=== PATIENT | male | born 1955 | race Asian ===

== ENCOUNTER 2019-06-14 20:53 | Emergency (ER) | payer OTHER ==
[~2019-06-14] VITALS: Ht 170.2 cm; Wt 102.7 kg
[2019-06-14] MEDS ORDERED: PIOG15TA6 PO (21:32)
[2019-06-14] MEDS ORDERED: TAMS-13 PO (21:32)
[2019-06-14] MEDS ORDERED: FINA5TAB41 PO (21:32)
[2019-06-14] MEDS ORDERED: SIMV-260 PO (21:32)
[2019-06-14] MEDS ORDERED: GABA-531 PO (21:32)
[2019-06-14] MEDS ORDERED: LISI-660 PO (21:32)
[2019-06-14] MEDS ORDERED: GLIP5TAB11 PO (21:32)
[2019-06-14] MEDS ORDERED: METF-445 PO (21:32)
[2019-06-14] MEDS ORDERED: DILT-39 PO (21:32)
[2019-06-14] MEDS ORDERED: LIDOCAINE 1% 10 ML VIAL INJ ONE (22:00)
[2019-06-14] MEDS ORDERED: POVIDONE-IODINE 10% 15 ML SOLUTION UD TP ONE (22:15)
[2019-06-14 22:30] VITALS: BP 128/75
[2019-06-14] MEDS ORDERED: IBUPROFEN 800 MG TABLET PO ONE (22:30)
[2019-06-14] MEDS ORDERED: SULFAMETHOX/TRIMETH DS 800-160 MG/TABLET PO ONE (23:00)
[2019-06-14] MEDS ORDERED: CEPHALEXIN MONOHYDRATE 500 MG CAPSULE PO ONE (23:00)
== END 2019-06-14 22:56 | disposition home or self-care (01) ==
LOC: EMS 20:57
DX: L03.317 Cellulitis of buttock (principal); L02.31 Cutaneous abscess of buttock; E11.9 Type 2 diabetes mellitus without complications; E78.00 Pure hypercholesterolemia, unspecified; I10 Essential (primary) hypertension; Z79.899 Other long term (current) drug therapy
CPT/HCPCS: 10061; 99284; J3490; 10060; 90471

== ENCOUNTER 2019-08-30 10:43 | Inpatient (IN) | payer OTHER ==
[~2019-08-30] VITALS: Ht 170.2 cm; Wt 101.0 kg
[~2019-08-30 10:43] MED LIST: DILT-39 PO; FINA-27 PO; GABA-531 PO; GLIP5TAB11 PO; LISI-660 PO; METF-445 PO; PIOG15TA6 PO; SIMV-260 PO; TAMS-13 PO
[2019-08-30 10:59] LABS: GLUCOSE,POINT OF CARE 248 MG/DL (70-110)
[2019-08-30] MEDS ORDERED: VANCOMYCIN HCL 1 GM/D5% WATER 200 ML IV ONE (12:15)
[2019-08-30 13:42] LABS: BASOPHILS % (AUTO) 0.4 % (0.0-2.0); HEMOGLOBIN 13.8 g/dL (13.5-17.5); LYMPHOCYTES # (AUTO) 1.7 K/uL (1.0-4.8); LYMPHOCYTES % (AUTO) 9.5 % (22.0-44.0); MEAN CORPUSCULAR HEMOGLOBIN 26.3 pg (26.0-34.0); MEAN CORPUSCULAR HGB CONC 32.8 G/dL (31.0-37.0); MEAN CORPUSCULAR VOLUME 80 fL (80-100); MONOCYTES # (AUTO) 1.5 K/uL (0.1-1.0); MONOCYTES % (AUTO) 8.1 % (2.0-9.0); NEUTROPHILS # (AUTO) 12.1 K/uL (1.8-7.7); NEUTROPHILS % (AUTO) 65.7 % (40.0-70.0); PLATELET COUNT (AUTO) 287 K/uL (150-450); RED BLOOD CELL COUNT(AUTO) 5.23 MIL/uL (4.50-5.90); RED CELL DISTRIBUTION WIDTH 15.1 % (11.5-14.5)
[2019-08-30 13:44] LABS: EOSINOPHILS % (AUTO) 16.3 % (1.0-6.0)
[2019-08-30 13:49] LABS: ANION GAP 11 mmol/L (8-16); CALCIUM, TOTAL 9.3 mg/dL (8.8-10.5); CARBON DIOXIDE 28 mmol/L (22-29); CHLORIDE 102 mmol/L (98-107); CREATININE 1.13 mg/dL (0.60-1.30); GLOMERULAR FILTR. RATE CALC > 60 mL/min (>60); GLUCOSE,RANDOM 142 mg/dL (70-110); POTASSIUM 3.8 mmol/L (3.5-5.1); SODIUM SERUM 141 mmol/L (136-145); UREA NITROGEN, BLOOD 12 mg/dL (7-18)
[2019-08-30 13:55] LABS: ALANINE AMINOTRANSFERASE 19 U/L (12-78); ALBUMIN 3.8 g/dL (3.4-5.0); ALKALINE PHOSPHATASE 65 U/L (46-116); ASPARTATE AMINOTRANSFERASE 16 U/L (15-37); BILIRUBIN,TOTAL 0.3 mg/dL (0.1-1.0); TOTAL PROTEIN, SERUM 8.2 g/dL (6.4-8.2)
[2019-08-30 13:57] LABS: LACTIC ACID 1.1 mmol/L (0.4-2.0)
[2019-08-30 14:07] LABS: B-TYPE NATRIURETIC PEPTIDE 69 pg/mL (0-100)
[2019-08-30] MEDS ORDERED: IOVERSOL 350 MG/ML 100 ML VIAL ONE (14:10)
[2019-08-30] MEDS ORDERED: SODIUM CHLORIDE 0.9% 100 ML ONE (14:10)
[2019-08-30] MEDS ORDERED: HYDROCODONE/ACETAMINOPHEN 5-325 MG TABLET PO ONE ×2 (16:00→20:00)
[2019-08-30] MEDS ORDERED: 0.9% SODIUM CHLORIDE 10 ML SYRINGE IVP PRN ×2 (16:30→23:45)
[2019-08-30] MEDS ORDERED: ACETAMINOPHEN 325 MG TABLET PO PRN (16:30)
[2019-08-30] MEDS ORDERED: PIPERACILLIN/TAZO 3.375 GM/D5W 50 ML IV ONE (16:30)
[2019-08-30 21:45] VITALS: BP 114/78
[2019-08-30] MEDS ORDERED: ONDANSETRON HCL 4 MG/2 ML VIAL IVP PRN (23:45)
[2019-08-31] MEDS: DOCUSATE SODIUM 100 MG CAPSULE PO SCH ×3 (00:25→20:43)
[2019-08-31] MEDS: OxyCODONE HCL/ACETAMINOPHEN 5-325 MG TABLET PO PRN ×4 (00:26→23:59)
[2019-08-31] MEDS: CeFAZolin 1 GM/DEXTROSE 50 ML IV SCH ×4 (00:26→23:29)
[2019-08-31] MEDS ORDERED: SODIUM CHLORIDE 0.9% 1,000 ML ONE (00:48)
[2019-08-31 03:30] VITALS: BP 131/72
[2019-08-31 08:14] LABS: BASOPHILS % (AUTO) 0.4 % (0.0-2.0); HEMATOCRIT 39.8 % (41-53); HEMOGLOBIN 13.2 g/dL (13.5-17.5); LYMPHOCYTES # (AUTO) 1.7 K/uL (1.0-4.8); LYMPHOCYTES % (AUTO) 9.3 % (22.0-44.0); MEAN CORPUSCULAR HEMOGLOBIN 26.5 pg (26.0-34.0); MEAN CORPUSCULAR HGB CONC 33.2 G/dL (31.0-37.0); MEAN CORPUSCULAR VOLUME 80 fL (80-100); MONOCYTES # (AUTO) 1.8 K/uL (0.1-1.0); MONOCYTES % (AUTO) 9.5 % (2.0-9.0); NEUTROPHILS # (AUTO) 12.7 K/uL (1.8-7.7); NEUTROPHILS % (AUTO) 67.8 % (40.0-70.0); PLATELET COUNT (AUTO) 298 K/uL (150-450); RED BLOOD CELL COUNT(AUTO) 4.99 MIL/uL (4.50-5.90); RED CELL DISTRIBUTION WIDTH 14.8 % (11.5-14.5)
[2019-08-31 08:16] VITALS: BP 121/68
[2019-08-31] MEDS: FAMOTIDINE 10 MG/ML 2 ML VIAL IVP SCH (08:19)
[2019-08-31] MEDS: DILTIAZEM HCL CD 120 MG ER CAPSULE PO SCH (08:20)
[2019-08-31] MEDS: TAMSULOSIN HCL 0.4 MG CAPSULE PO SCH (08:20)
[2019-08-31] MEDS: FINASTERIDE 5 MG TABLET PO SCH (08:20)
[2019-08-31] MEDS: SIMVASTATIN 20 MG TABLET PO SCH (08:21)
[2019-08-31 08:40] LABS: ALANINE AMINOTRANSFERASE 17 U/L (12-78); ALBUMIN 3.5 g/dL (3.4-5.0); ALKALINE PHOSPHATASE 78 U/L (46-116); ANION GAP 9 mmol/L (8-16); ASPARTATE AMINOTRANSFERASE 10 U/L (15-37); BILIRUBIN,TOTAL 0.4 mg/dL (0.1-1.0); CALCIUM, TOTAL 8.9 mg/dL (8.8-10.5); CARBON DIOXIDE 29 mmol/L (22-29); CHLORIDE 99 mmol/L (98-107); GLOMERULAR FILTR. RATE CALC > 60 mL/min (>60); GLUCOSE,RANDOM 150 mg/dL (70-110); POTASSIUM 3.6 mmol/L (3.5-5.1); SODIUM SERUM 137 mmol/L (136-145); UREA NITROGEN, BLOOD 12 mg/dL (7-18)
[2019-08-31] MEDS: LISINOPRIL 5 MG TABLET PO SCH (09:02)
[2019-08-31 12:33] VITALS: BP 143/71
[2019-08-31] MEDS: HYDROGEN PEROXIDE 118 ML SOLUTION TP SCH ×2 (14:50→22:27)
[2019-08-31 15:55] VITALS: BP 150/94
[2019-08-31 19:15] VITALS: BP 111/62
[2019-08-31 23:50] VITALS: BP 116/52
[2019-09-01 04:45] VITALS: BP 133/58
[2019-09-01 07:42] VITALS: BP 134/77
[2019-09-01] MEDS: CeFAZolin 1 GM/DEXTROSE 50 ML IV SCH ×3 (07:51→23:19)
[2019-09-01] MEDS: LISINOPRIL 5 MG TABLET PO SCH (08:19)
[2019-09-01] MEDS: DOCUSATE SODIUM 100 MG CAPSULE PO SCH ×3 (08:19→21:00)
[2019-09-01] MEDS: SIMVASTATIN 20 MG TABLET PO SCH (08:19)
[2019-09-01] MEDS: TAMSULOSIN HCL 0.4 MG CAPSULE PO SCH (08:19)
[2019-09-01] MEDS: DILTIAZEM HCL CD 120 MG ER CAPSULE PO SCH (08:19)
[2019-09-01] MEDS: FINASTERIDE 5 MG TABLET PO SCH (08:19)
[2019-09-01] MEDS: HYDROGEN PEROXIDE 118 ML SOLUTION TP SCH ×2 (08:20→20:42)
[2019-09-01] MEDS: FAMOTIDINE 10 MG/ML 2 ML VIAL IVP SCH (08:20)
[2019-09-01] MEDS: VANCOMYCIN HCL 1 GM/D5% WATER 200 ML IV SCH ×2 (11:25→20:42)
[2019-09-01 11:29] VITALS: BP 107/52
[2019-09-01] MEDS: OxyCODONE HCL/ACETAMINOPHEN 5-325 MG TABLET PO PRN ×2 (12:21→18:50)
[2019-09-01 15:22] VITALS: BP 120/79
[2019-09-01] MEDS ORDERED: DEXTROSE 50%-WATER 25 GM/50 ML SYRINGE IVP PRN (17:15)
[2019-09-01 17:19] LABS: BASOPHILS % (AUTO) 0.6 % (0.0-2.0); EOSINOPHILS % (AUTO) 14.4 % (1.0-6.0); HEMATOCRIT 37.3 % (41-53); HEMOGLOBIN 11.9 g/dL (13.5-17.5); LYMPHOCYTES # (AUTO) 1.7 K/uL (1.0-4.8); LYMPHOCYTES % (AUTO) 11.2 % (22.0-44.0); MEAN CORPUSCULAR HEMOGLOBIN 25.4 pg (26.0-34.0); MEAN CORPUSCULAR HGB CONC 31.8 G/dL (31.0-37.0); MEAN CORPUSCULAR VOLUME 80 fL (80-100); MONOCYTES # (AUTO) 1.4 K/uL (0.1-1.0); MONOCYTES % (AUTO) 9.3 % (2.0-9.0); NEUTROPHILS # (AUTO) 9.9 K/uL (1.8-7.7); NEUTROPHILS % (AUTO) 64.5 % (40.0-70.0); PLATELET COUNT (AUTO) 295 K/uL (150-450); RED BLOOD CELL COUNT(AUTO) 4.67 MIL/uL (4.50-5.90); RED CELL DISTRIBUTION WIDTH 15.2 % (11.5-14.5)
[2019-09-01] MEDS ORDERED: GLIP10 PO (17:25)
[2019-09-01 17:36] LABS: GLUCOMETER DEV NAME(LOC) 6N.2; GLUCOSE,POINT OF CARE 181 MG/DL (70-110)
[2019-09-01] MEDS: INSULIN LISPRO 100 UNITS/ML SQ PRN ×2 (17:52→23:12)
[2019-09-01 19:45] VITALS: BP 119/66
[2019-09-01 20:54] LABS: GLUCOMETER DEV NAME(LOC) 6N.1; GLUCOSE,POINT OF CARE 215 MG/DL (70-110)
[2019-09-01 23:18] LABS: GLUCOMETER DEV NAME(LOC) 6N.2; GLUCOSE,POINT OF CARE 188 MG/DL (70-110)
[2019-09-01 23:35] VITALS: BP 113/57
[2019-09-02 04:00] VITALS: BP 123/78
[2019-09-02 06:22] LABS: GLUCOMETER DEV NAME(LOC) 6N.2; GLUCOSE,POINT OF CARE 156 MG/DL (70-110)
[2019-09-02] MEDS: INSULIN LISPRO 100 UNITS/ML SQ PRN ×4 (06:44→22:04)
[2019-09-02 07:07] LABS: BASOPHILS % (AUTO) 0.6 % (0.0-2.0); HEMATOCRIT 36.5 % (41-53); HEMOGLOBIN 12.1 g/dL (13.5-17.5); LYMPHOCYTES # (AUTO) 1.5 K/uL (1.0-4.8); LYMPHOCYTES % (AUTO) 12.9 % (22.0-44.0); MEAN CORPUSCULAR HEMOGLOBIN 26.4 pg (26.0-34.0); MEAN CORPUSCULAR HGB CONC 33.2 G/dL (31.0-37.0); MEAN CORPUSCULAR VOLUME 80 fL (80-100); MONOCYTES # (AUTO) 1.1 K/uL (0.1-1.0); MONOCYTES % (AUTO) 9.4 % (2.0-9.0); NEUTROPHILS # (AUTO) 6.6 K/uL (1.8-7.7); NEUTROPHILS % (AUTO) 55.7 % (40.0-70.0); PLATELET COUNT (AUTO) 287 K/uL (150-450)
[2019-09-02 07:31] VITALS: BP 119/72
[2019-09-02 07:33] LABS: ANION GAP 10 mmol/L (8-16); CALCIUM, TOTAL 8.2 mg/dL (8.8-10.5); CARBON DIOXIDE 27 mmol/L (22-29); CHLORIDE 102 mmol/L (98-107); CREATININE 1.11 mg/dL (0.60-1.30); GLOMERULAR FILTR. RATE CALC > 60 mL/min (>60); GLUCOSE,RANDOM 156 mg/dL (70-110); POTASSIUM 3.4 mmol/L (3.5-5.1); SODIUM SERUM 139 mmol/L (136-145); UREA NITROGEN, BLOOD 17 mg/dL (7-18)
[2019-09-02] MEDS: TAMSULOSIN HCL 0.4 MG CAPSULE PO SCH (08:20)
[2019-09-02] MEDS: CeFAZolin 1 GM/DEXTROSE 50 ML IV SCH ×2 (08:20→16:30)
[2019-09-02] MEDS: DOCUSATE SODIUM 100 MG CAPSULE PO SCH ×2 (08:21→21:50)
[2019-09-02] MEDS: DILTIAZEM HCL CD 120 MG ER CAPSULE PO SCH (08:21)
[2019-09-02] MEDS: FINASTERIDE 5 MG TABLET PO SCH (08:21)
[2019-09-02] MEDS: SIMVASTATIN 20 MG TABLET PO SCH (08:21)
[2019-09-02] MEDS: LISINOPRIL 5 MG TABLET PO SCH (08:21)
[2019-09-02] MEDS: FAMOTIDINE 10 MG/ML 2 ML VIAL IVP SCH (08:22)
[2019-09-02] MEDS: HYDROGEN PEROXIDE 118 ML SOLUTION TP SCH ×2 (08:32→21:56)
[2019-09-02] MEDS ORDERED: MAGNESIUM HYDROXIDE SUSPENSION 30 ML UDCUP PO PRN (08:45)
[2019-09-02 08:56] LABS: EOSINOPHILS % (AUTO) 21.4 % (1.0-6.0)
[2019-09-02] MEDS ORDERED: VANCOMYCIN HCL 1.25 GM in DEXTROSE 5%-WATER 250 ML IV ONE (09:00)
[2019-09-02] MEDS ORDERED: VANCOMYCIN HCL 1 GM/D5% WATER 200 ML IV ONE (09:30)
[2019-09-02 11:18] VITALS: BP 115/73
[2019-09-02 15:15] LABS: GLUCOMETER DEV NAME(LOC) 6N.2; GLUCOSE,POINT OF CARE 221 MG/DL (70-110)
[2019-09-02] MEDS ORDERED: POTASSIUM CHL 10 MEQ/WATER 50 ML IV PRN (15:30)
[2019-09-02] MEDS: POTASSIUM CHLORIDE 20 MEQ ER TABLET PO PRN (15:58)
[2019-09-02] MEDS: OxyCODONE HCL/ACETAMINOPHEN 5-325 MG TABLET PO PRN ×2 (16:18→21:50)
[2019-09-02 20:00] VITALS: BP 121/61
[2019-09-02] MEDS ORDERED: VANCOMYCIN HCL 1.25 GM in DEXTROSE 5%-WATER 250 ML IV SCH (20:00)
[2019-09-02] MEDS: VANCOMYCIN HCL 1 GM/D5% WATER 200 ML IV SCH (21:55)
[2019-09-02 23:21] VITALS: BP 122/78
[2019-09-03] MEDS: CeFAZolin 1 GM/DEXTROSE 50 ML IV SCH ×3 (01:02→16:24)
[2019-09-03 04:00] VITALS: BP 130/73
[2019-09-03] MEDS: VANCOMYCIN HCL 1 GM/D5% WATER 200 ML IV SCH ×3 (05:29→22:57)
[2019-09-03 06:11] LABS: BASOPHILS % (AUTO) 0.7 % (0.0-2.0); HEMATOCRIT 38.6 % (41-53); HEMOGLOBIN 12.9 g/dL (13.5-17.5); LYMPHOCYTES # (AUTO) 1.9 K/uL (1.0-4.8); LYMPHOCYTES % (AUTO) 15.1 % (22.0-44.0); MEAN CORPUSCULAR HEMOGLOBIN 26.5 pg (26.0-34.0); MEAN CORPUSCULAR HGB CONC 33.3 G/dL (31.0-37.0); MEAN CORPUSCULAR VOLUME 80 fL (80-100); MONOCYTES # (AUTO) 1.2 K/uL (0.1-1.0); MONOCYTES % (AUTO) 9.3 % (2.0-9.0); NEUTROPHILS % (AUTO) 55.8 % (40.0-70.0); PLATELET COUNT (AUTO) 320 K/uL (150-450); RED BLOOD CELL COUNT(AUTO) 4.86 MIL/uL (4.50-5.90); RED CELL DISTRIBUTION WIDTH 14.9 % (11.5-14.5)
[2019-09-03 06:18] LABS: EOSINOPHILS % (AUTO) 19.1 % (1.0-6.0)
[2019-09-03] MEDS: INSULIN LISPRO 100 UNITS/ML SQ PRN ×3 (06:28→20:30)
[2019-09-03 06:34] LABS: ANION GAP 8 mmol/L (8-16); CALCIUM, TOTAL 8.4 mg/dL (8.8-10.5); CARBON DIOXIDE 27 mmol/L (22-29); CHLORIDE 100 mmol/L (98-107); CREATININE 1.06 mg/dL (0.60-1.30); GLOMERULAR FILTR. RATE CALC > 60 mL/min (>60); GLUCOSE,RANDOM 185 mg/dL (70-110); SODIUM SERUM 135 mmol/L (136-145); UREA NITROGEN, BLOOD 15 mg/dL (7-18); VANCOMYCIN,RANDOM 15.3 mcg/mL (25.0-50.0)
[2019-09-03 07:45] VITALS: BP 127/65
[2019-09-03] MEDS: DOCUSATE SODIUM 100 MG CAPSULE PO SCH ×2 (08:41→20:29)
[2019-09-03] MEDS: FAMOTIDINE 10 MG/ML 2 ML VIAL IVP SCH (08:41)
[2019-09-03] MEDS: SIMVASTATIN 20 MG TABLET PO SCH (08:41)
[2019-09-03] MEDS: FINASTERIDE 5 MG TABLET PO SCH (08:41)
[2019-09-03] MEDS: TAMSULOSIN HCL 0.4 MG CAPSULE PO SCH (08:41)
[2019-09-03] MEDS: DILTIAZEM HCL CD 120 MG ER CAPSULE PO SCH (08:41)
[2019-09-03] MEDS: LISINOPRIL 5 MG TABLET PO SCH (08:42)
[2019-09-03] MEDS: OxyCODONE HCL/ACETAMINOPHEN 5-325 MG TABLET PO PRN ×3 (08:45→23:21)
[2019-09-03] MEDS: HYDROGEN PEROXIDE 118 ML SOLUTION TP SCH (09:00)
[2019-09-03 11:49] VITALS: BP 142/79
[2019-09-03] MEDS ORDERED: FentaNYL CITRATE-PF 100 MCG/2 ML VIAL IVP ONE (12:00)
[2019-09-03] MEDS ORDERED: LIDOCAINE/PF 2% 5 ML SYRINGE IVP ONE (12:00)
[2019-09-03] MEDS ORDERED: MIDAZOLAM HCL 2 MG/2 ML VIAL IVP ONE (12:00)
[2019-09-03] MEDS ORDERED: ROCURONIUM BROMIDE 10 MG/ML 5 ML VIAL IVP ONE (12:00)
[2019-09-03] MEDS ORDERED: PROPOFOL 1% 20 ML VIAL IVP ONE (12:00)
[2019-09-03] MEDS ORDERED: SUCCINYLCHOLINE CHLORIDE 20 MG/ML 10 ML VIAL IVP ONE (12:00)
[2019-09-03] MEDS ORDERED: RINGERS SOLUTION,LACTATED 1,000 ML IV ONE (12:00)
[2019-09-03] MEDS ORDERED: ONDANSETRON HCL 4 MG/2 ML VIAL IVP ONE (12:00)
[2019-09-03] MEDS ORDERED: SODIUM CHLORIDE 0.9% 10 ML ONE (14:19)
[2019-09-03] MEDS ORDERED: BACITRACIN 50,000 UNITS/VIAL ONE (14:19)
[2019-09-03] MEDS ORDERED: BUPIVACAINE 0.25%/EPI 1:200,000/PF 10 ML VIAL ONE (14:24)
[2019-09-03] MEDS ORDERED: FentaNYL CITRATE-PF 100 MCG/2 ML VIAL IVP PRN (15:15)
[2019-09-03] MEDS ORDERED: HYDROmorphone 2 MG/ML SYRINGE IVP PRN (15:15)
[2019-09-03] MEDS ORDERED: MEPERIDINE-PF 25 MG/ML VIAL IVP PRN (15:15)
[2019-09-03] MEDS ORDERED: SUGAMMADEX SODIUM 200 MG/2 ML VIAL IVP ONE (15:16)
[2019-09-03] MEDS ORDERED: HYDROmorphone 2 MG/ML SYRINGE ONE (15:44)
[2019-09-03 16:48] VITALS: BP 153/75
[2019-09-03 19:40] VITALS: BP 116/63
[2019-09-03] MEDS: OXYGEN THERAPY IH SCH (20:00)
[2019-09-03 23:22] VITALS: BP 129/79
[2019-09-04] MEDS: CeFAZolin 1 GM/DEXTROSE 50 ML IV SCH ×2 (00:57→08:49)
[2019-09-04 05:22] VITALS: BP 140/75
[2019-09-04] MEDS: VANCOMYCIN HCL 1 GM/D5% WATER 200 ML IV SCH (06:20)
[2019-09-04] MEDS: INSULIN LISPRO 100 UNITS/ML SQ PRN ×4 (06:21→20:22)
[2019-09-04 06:26] LABS: BASOPHILS % (AUTO) 0.8 % (0.0-2.0); HEMATOCRIT 39.3 % (41-53); HEMOGLOBIN 12.8 g/dL (13.5-17.5); LYMPHOCYTES % (AUTO) 17.9 % (22.0-44.0); MEAN CORPUSCULAR HGB CONC 32.5 G/dL (31.0-37.0); MEAN CORPUSCULAR VOLUME 80 fL (80-100); MONOCYTES # (AUTO) 1.1 K/uL (0.1-1.0); MONOCYTES % (AUTO) 9.3 % (2.0-9.0); NEUTROPHILS # (AUTO) 6.1 K/uL (1.8-7.7); NEUTROPHILS % (AUTO) 54.3 % (40.0-70.0); PLATELET COUNT (AUTO) 341 K/uL (150-450); RED BLOOD CELL COUNT(AUTO) 4.92 MIL/uL (4.50-5.90); RED CELL DISTRIBUTION WIDTH 14.9 % (11.5-14.5)
[2019-09-04 06:29] LABS: EOSINOPHILS % (AUTO) 17.7 % (1.0-6.0)
[2019-09-04 06:56] LABS: VANCOMYCIN,RANDOM 21.7 mcg/mL (25.0-50.0)
[2019-09-04 07:15] LABS: ANION GAP 8 mmol/L (8-16); CALCIUM, TOTAL 8.7 mg/dL (8.8-10.5); CARBON DIOXIDE 27 mmol/L (22-29); CHLORIDE 100 mmol/L (98-107); GLOMERULAR FILTR. RATE CALC > 60 mL/min (>60); GLUCOSE,RANDOM 174 mg/dL (70-110); POTASSIUM 4.2 mmol/L (3.5-5.1); SODIUM SERUM 135 mmol/L (136-145)
[2019-09-04 07:29] LABS: UREA NITROGEN, BLOOD 13 mg/dL (7-18)
[2019-09-04] MEDS: OXYGEN THERAPY IH SCH (08:00)
[2019-09-04 08:09] VITALS: BP 129/66
[2019-09-04] MEDS: OxyCODONE HCL/ACETAMINOPHEN 5-325 MG TABLET PO PRN ×2 (08:47→18:43)
[2019-09-04] MEDS: FAMOTIDINE 10 MG/ML 2 ML VIAL IVP SCH (08:48)
[2019-09-04] MEDS: DOCUSATE SODIUM 100 MG CAPSULE PO SCH ×2 (08:48→20:12)
[2019-09-04] MEDS: FINASTERIDE 5 MG TABLET PO SCH (08:48)
[2019-09-04] MEDS: TAMSULOSIN HCL 0.4 MG CAPSULE PO SCH (08:48)
[2019-09-04] MEDS: SIMVASTATIN 20 MG TABLET PO SCH (08:48)
[2019-09-04] MEDS: DILTIAZEM HCL CD 120 MG ER CAPSULE PO SCH (08:48)
[2019-09-04] MEDS: LISINOPRIL 5 MG TABLET PO SCH (08:48)
[2019-09-04 11:31] VITALS: BP 131/85
[2019-09-04] MEDS: VANCOMYCIN HCL 750 MG in DEXTROSE 5%-WATER 250 ML IV SCH ×2 (15:15→22:15)
[2019-09-04] MEDS ORDERED: SODIUM CHLORIDE 0.9% 1,000 ML ONE (15:19)
[2019-09-04 16:15] VITALS: BP 127/65
[2019-09-04 20:24] VITALS: BP 118/54
[2019-09-04 23:45] VITALS: BP 133/68
[2019-09-05] MEDS: INSULIN LISPRO 100 UNITS/ML SQ PRN ×4 (05:26→21:20)
[2019-09-05 05:30] VITALS: BP 128/58
[2019-09-05] MEDS: VANCOMYCIN HCL 750 MG in DEXTROSE 5%-WATER 250 ML IV SCH ×3 (06:24→23:51)
[2019-09-05 07:35] VITALS: BP 149/81
[2019-09-05] MEDS: OXYGEN THERAPY IH SCH ×2 (08:00→20:32)
[2019-09-05] MEDS: LISINOPRIL 5 MG TABLET PO SCH (09:02)
[2019-09-05] MEDS: FINASTERIDE 5 MG TABLET PO SCH (09:02)
[2019-09-05] MEDS: DOCUSATE SODIUM 100 MG CAPSULE PO SCH ×2 (09:02→20:29)
[2019-09-05] MEDS: FAMOTIDINE 10 MG/ML 2 ML VIAL IVP SCH (09:02)
[2019-09-05] MEDS: SIMVASTATIN 20 MG TABLET PO SCH (09:03)
[2019-09-05] MEDS: TAMSULOSIN HCL 0.4 MG CAPSULE PO SCH (09:03)
[2019-09-05] MEDS: DILTIAZEM HCL CD 120 MG ER CAPSULE PO SCH (09:03)
[2019-09-05 09:16] LABS: ANION GAP 11 mmol/L (8-16); CARBON DIOXIDE 26 mmol/L (22-29); CHLORIDE 99 mmol/L (98-107); CREATININE 1.09 mg/dL (0.60-1.30); GLOMERULAR FILTR. RATE CALC > 60 mL/min (>60); GLUCOSE,RANDOM 218 mg/dL (70-110); POTASSIUM 4.2 mmol/L (3.5-5.1); SODIUM SERUM 136 mmol/L (136-145); UREA NITROGEN, BLOOD 9 mg/dL (7-18)
[2019-09-05] MEDS: OxyCODONE HCL/ACETAMINOPHEN 5-325 MG TABLET PO PRN ×2 (10:54→20:31)
[2019-09-05 11:20] VITALS: BP 134/78
[2019-09-05 15:25] VITALS: BP 136/76
[2019-09-05 19:46] VITALS: BP 132/62
[2019-09-05 23:58] VITALS: BP 121/65
[2019-09-06 04:42] VITALS: BP 140/76
[2019-09-06 06:10] LABS: ANION GAP 8 mmol/L (8-16); CALCIUM, TOTAL 8.9 mg/dL (8.8-10.5); CARBON DIOXIDE 29 mmol/L (22-29); CHLORIDE 100 mmol/L (98-107); CREATININE 1.09 mg/dL (0.60-1.30); GLOMERULAR FILTR. RATE CALC > 60 mL/min (>60); GLUCOSE,RANDOM 200 mg/dL (70-110); POTASSIUM 3.8 mmol/L (3.5-5.1); SODIUM SERUM 137 mmol/L (136-145); UREA NITROGEN, BLOOD 12 mg/dL (7-18); VANCOMYCIN,RANDOM 20.6 mcg/mL (25.0-50.0)
[2019-09-06] MEDS: VANCOMYCIN HCL 750 MG in DEXTROSE 5%-WATER 250 ML IV SCH ×3 (06:24→22:22)
[2019-09-06] MEDS: INSULIN LISPRO 100 UNITS/ML SQ PRN ×4 (06:32→20:58)
[2019-09-06 07:39] VITALS: BP 128/64
[2019-09-06] MEDS: FAMOTIDINE 10 MG/ML 2 ML VIAL IVP SCH (08:34)
[2019-09-06] MEDS: DOCUSATE SODIUM 100 MG CAPSULE PO SCH ×2 (08:35→20:57)
[2019-09-06] MEDS: DILTIAZEM HCL CD 120 MG ER CAPSULE PO SCH (08:35)
[2019-09-06] MEDS: FINASTERIDE 5 MG TABLET PO SCH (08:35)
[2019-09-06] MEDS: LISINOPRIL 5 MG TABLET PO SCH (08:35)
[2019-09-06] MEDS: SIMVASTATIN 20 MG TABLET PO SCH (08:35)
[2019-09-06] MEDS: TAMSULOSIN HCL 0.4 MG CAPSULE PO SCH (08:35)
[2019-09-06 13:09] LABS: GLUCOMETER DEV NAME(LOC) 6N.1; GLUCOSE,POINT OF CARE 222 MG/DL (70-110)
[2019-09-06 13:09] LABS: GLUCOMETER DEV NAME(LOC) 6N.1; GLUCOSE,POINT OF CARE 181 MG/DL (70-110)
[2019-09-06 13:09] LABS: GLUCOMETER DEV NAME(LOC) 6N.1; GLUCOSE,POINT OF CARE 209 MG/DL (70-110)
[2019-09-06 13:09] LABS: GLUCOMETER DEV NAME(LOC) 6N.1; GLUCOSE,POINT OF CARE 220 MG/DL (70-110)
[2019-09-06 13:10] LABS: GLUCOMETER DEV NAME(LOC) 4E.2; GLUCOSE,POINT OF CARE 198 MG/DL (70-110)
[2019-09-06 13:10] LABS: GLUCOMETER DEV NAME(LOC) 4E.2; GLUCOSE,POINT OF CARE 170 MG/DL (70-110)
[2019-09-06 13:10] LABS: GLUCOMETER DEV NAME(LOC) 4E.2; GLUCOSE,POINT OF CARE 205 MG/DL (70-110)
[2019-09-06 13:10] LABS: GLUCOMETER DEV NAME(LOC) 6N.1; GLUCOSE,POINT OF CARE 177 MG/DL (70-110)
[2019-09-06 13:11] LABS: GLUCOMETER DEV NAME(LOC) 6N.1; GLUCOSE,POINT OF CARE 381 MG/DL (70-110)
[2019-09-06 13:11] LABS: GLUCOMETER DEV NAME(LOC) 6N.1; GLUCOSE,POINT OF CARE 205 MG/DL (70-110)
[2019-09-06 13:11] LABS: GLUCOMETER DEV NAME(LOC) 4E.2; GLUCOSE,POINT OF CARE 270 MG/DL (70-110)
[2019-09-06 13:11] LABS: GLUCOMETER DEV NAME(LOC) 6N.1; GLUCOSE,POINT OF CARE 273 MG/DL (70-110)
[2019-09-06 13:12] LABS: GLUCOMETER DEV NAME(LOC) 4E.2; GLUCOSE,POINT OF CARE 174 MG/DL (70-110)
[2019-09-06 13:12] LABS: GLUCOMETER DEV NAME(LOC) 4E.2; GLUCOSE,POINT OF CARE 232 MG/DL (70-110)
[2019-09-06 13:12] LABS: GLUCOMETER DEV NAME(LOC) 4E.2; GLUCOSE,POINT OF CARE 213 MG/DL (70-110)
[2019-09-06 13:12] LABS: GLUCOMETER DEV NAME(LOC) 4E.2; GLUCOSE,POINT OF CARE 231 MG/DL (70-110)
[2019-09-06 15:45] VITALS: BP 130/74
[2019-09-06 19:39] VITALS: BP 148/90
[2019-09-06] MEDS: OXYGEN THERAPY IH SCH (20:00)
[2019-09-06] MEDS: OxyCODONE HCL/ACETAMINOPHEN 5-325 MG TABLET PO PRN (20:57)
[2019-09-06 20:59] LABS: GLUCOMETER DEV NAME(LOC) 4E.2; GLUCOSE,POINT OF CARE 225 MG/DL (70-110)
[2019-09-06 21:06] LABS: GLUCOMETER DEV NAME(LOC) 6N.1; GLUCOSE,POINT OF CARE 267 MG/DL (70-110)
[2019-09-06] MEDS ORDERED: SODIUM CHLORIDE 0.9% 500 ML IV ONE (22:08)
[2019-09-07] VITALS (7 sets, daily range): BP systolic 115–138; BP diastolic 64–91
[2019-09-07] MEDS: VANCOMYCIN HCL 750 MG in DEXTROSE 5%-WATER 250 ML IV SCH ×3 (06:21→23:26)
[2019-09-07] MEDS: INSULIN LISPRO 100 UNITS/ML SQ PRN ×4 (06:22→20:54)
[2019-09-07 06:46] LABS: GLUCOMETER DEV NAME(LOC) 4E.2; GLUCOSE,POINT OF CARE 195 MG/DL (70-110)
[2019-09-07 07:10] LABS: ANION GAP 9 mmol/L (8-16); CALCIUM, TOTAL 9.1 mg/dL (8.8-10.5); CARBON DIOXIDE 28 mmol/L (22-29); CHLORIDE 100 mmol/L (98-107); CREATININE 1.12 mg/dL (0.60-1.30); GLOMERULAR FILTR. RATE CALC > 60 mL/min (>60); GLUCOSE,RANDOM 205 mg/dL (70-110); POTASSIUM 3.9 mmol/L (3.5-5.1); SODIUM SERUM 137 mmol/L (136-145); UREA NITROGEN, BLOOD 12 mg/dL (7-18)
[2019-09-07] MEDS: LISINOPRIL 5 MG TABLET PO SCH (08:08)
[2019-09-07] MEDS: DOCUSATE SODIUM 100 MG CAPSULE PO SCH ×2 (08:08→20:54)
[2019-09-07] MEDS: FINASTERIDE 5 MG TABLET PO SCH (08:08)
[2019-09-07] MEDS: TAMSULOSIN HCL 0.4 MG CAPSULE PO SCH (08:08)
[2019-09-07] MEDS: DILTIAZEM HCL CD 120 MG ER CAPSULE PO SCH (08:08)
[2019-09-07] MEDS: FAMOTIDINE 10 MG/ML 2 ML VIAL IVP SCH (08:08)
[2019-09-07] MEDS: SIMVASTATIN 20 MG TABLET PO SCH (08:08)
[2019-09-07] MEDS: OxyCODONE HCL/ACETAMINOPHEN 5-325 MG TABLET PO PRN (17:14)
[2019-09-07 17:45] LABS: GLUCOMETER DEV NAME(LOC) 4E.2; GLUCOSE,POINT OF CARE 244 MG/DL (70-110)
[2019-09-07 17:45] LABS: GLUCOMETER DEV NAME(LOC) 4E.2; GLUCOSE,POINT OF CARE 253 MG/DL (70-110)
[2019-09-07] MEDS ORDERED: HYDROmorphone 2 MG/ML SYRINGE IVP PRN (18:00)
[2019-09-07 21:08] LABS: GLUCOMETER DEV NAME(LOC) 4E.2; GLUCOSE,POINT OF CARE 264 MG/DL (70-110)
[2019-09-08 05:29] VITALS: BP 140/84
[2019-09-08] MEDS: VANCOMYCIN HCL 750 MG in DEXTROSE 5%-WATER 250 ML IV SCH (06:36)
[2019-09-08] MEDS: INSULIN LISPRO 100 UNITS/ML SQ PRN ×4 (06:37→20:11)
[2019-09-08 07:54] VITALS: BP 126/72
[2019-09-08] MEDS: DOCUSATE SODIUM 100 MG CAPSULE PO SCH ×2 (08:16→20:13)
[2019-09-08] MEDS: FAMOTIDINE 10 MG/ML 2 ML VIAL IVP SCH (08:16)
[2019-09-08] MEDS: SIMVASTATIN 20 MG TABLET PO SCH (08:16)
[2019-09-08] MEDS: LISINOPRIL 5 MG TABLET PO SCH (08:16)
[2019-09-08] MEDS: DILTIAZEM HCL CD 120 MG ER CAPSULE PO SCH (08:16)
[2019-09-08] MEDS: FINASTERIDE 5 MG TABLET PO SCH (08:16)
[2019-09-08] MEDS: TAMSULOSIN HCL 0.4 MG CAPSULE PO SCH (08:16)
[2019-09-08 08:24] LABS: ANION GAP 8 mmol/L (8-16); CALCIUM, TOTAL 8.6 mg/dL (8.8-10.5); CARBON DIOXIDE 28 mmol/L (22-29); CHLORIDE 99 mmol/L (98-107); CREATININE 1.05 mg/dL (0.60-1.30); GLOMERULAR FILTR. RATE CALC > 60 mL/min (>60); GLUCOSE,RANDOM 219 mg/dL (70-110); POTASSIUM 3.8 mmol/L (3.5-5.1); SODIUM SERUM 135 mmol/L (136-145); UREA NITROGEN, BLOOD 9 mg/dL (7-18); VANCOMYCIN,RANDOM 18.9 mcg/mL (25.0-50.0)
[2019-09-08 11:47] VITALS: BP 117/74
[2019-09-08 15:41] VITALS: BP 100/64
[2019-09-08 17:07] LABS: GLUCOMETER DEV NAME(LOC) 4E.2; GLUCOSE,POINT OF CARE 247 MG/DL (70-110)
[2019-09-08 17:07] LABS: GLUCOMETER DEV NAME(LOC) 4E.2; GLUCOSE,POINT OF CARE 227 MG/DL (70-110)
[2019-09-08 20:00] VITALS: BP 119/58
[2019-09-08] MEDS: VANCOMYCIN HCL 1.25 GM in DEXTROSE 5%-WATER 250 ML IV SCH (20:13)
[2019-09-08 23:38] LABS: GLUCOMETER DEV NAME(LOC) 6N.1; GLUCOSE,POINT OF CARE 242 MG/DL (70-110)
[2019-09-08 23:38] LABS: GLUCOMETER DEV NAME(LOC) 6N.1; GLUCOSE,POINT OF CARE 294 MG/DL (70-110)
[2019-09-09] VITALS (7 sets, daily range): BP systolic 103–153; BP diastolic 60–86
[2019-09-09] MEDS: INSULIN LISPRO 100 UNITS/ML SQ PRN ×4 (06:14→21:51)
[2019-09-09 07:04] LABS: ANION GAP 9 mmol/L (8-16); CALCIUM, TOTAL 8.8 mg/dL (8.8-10.5); CARBON DIOXIDE 28 mmol/L (22-29); CHLORIDE 103 mmol/L (98-107); CREATININE 0.93 mg/dL (0.60-1.30); GLOMERULAR FILTR. RATE CALC > 60 mL/min (>60); GLUCOSE,RANDOM 213 mg/dL (70-110); POTASSIUM 3.7 mmol/L (3.5-5.1); SODIUM SERUM 140 mmol/L (136-145); UREA NITROGEN, BLOOD 13 mg/dL (7-18)
[2019-09-09] MEDS: OXYGEN THERAPY IH SCH (08:00)
[2019-09-09] MEDS: VANCOMYCIN HCL 1.25 GM in DEXTROSE 5%-WATER 250 ML IV SCH ×2 (08:47→21:04)
[2019-09-09] MEDS: SIMVASTATIN 20 MG TABLET PO SCH (08:48)
[2019-09-09] MEDS: OxyCODONE HCL/ACETAMINOPHEN 5-325 MG TABLET PO PRN ×2 (08:48→17:34)
[2019-09-09] MEDS: TAMSULOSIN HCL 0.4 MG CAPSULE PO SCH (08:48)
[2019-09-09] MEDS: DILTIAZEM HCL CD 120 MG ER CAPSULE PO SCH (08:48)
[2019-09-09] MEDS: FAMOTIDINE 10 MG/ML 2 ML VIAL IVP SCH (08:48)
[2019-09-09] MEDS: DOCUSATE SODIUM 100 MG CAPSULE PO SCH ×2 (08:48→21:00)
[2019-09-09] MEDS: FINASTERIDE 5 MG TABLET PO SCH (08:48)
[2019-09-09] MEDS: LISINOPRIL 5 MG TABLET PO SCH (08:54)
[2019-09-09 11:56] LABS: GLUCOMETER DEV NAME(LOC) 4E.2; GLUCOSE,POINT OF CARE 276 MG/DL (70-110)
[2019-09-09 12:35] LABS: GLUCOMETER DEV NAME(LOC) 6N.1; GLUCOSE,POINT OF CARE 213 MG/DL (70-110)
[2019-09-09 18:06] LABS: GLUCOMETER DEV NAME(LOC) 6N.1; GLUCOSE,POINT OF CARE 176 MG/DL (70-110)
[2019-09-10 05:36] VITALS: BP 143/83
[2019-09-10] MEDS: INSULIN LISPRO 100 UNITS/ML SQ PRN ×3 (06:14→17:24)
[2019-09-10 06:22] LABS: ANION GAP 11 mmol/L (8-16); CALCIUM, TOTAL 8.8 mg/dL (8.8-10.5); CARBON DIOXIDE 26 mmol/L (22-29); CHLORIDE 103 mmol/L (98-107); CREATININE 1.14 mg/dL (0.60-1.30); GLOMERULAR FILTR. RATE CALC > 60 mL/min (>60); GLUCOSE,RANDOM 190 mg/dL (70-110); POTASSIUM 4.1 mmol/L (3.5-5.1); SODIUM SERUM 140 mmol/L (136-145); UREA NITROGEN, BLOOD 15 mg/dL (7-18)
[2019-09-10 06:36] LABS: GLUCOMETER DEV NAME(LOC) 4E.2; GLUCOSE,POINT OF CARE 188 MG/DL (70-110)
[2019-09-10 06:36] LABS: GLUCOMETER DEV NAME(LOC) 4E.2; GLUCOSE,POINT OF CARE 208 MG/DL (70-110)
[2019-09-10 07:40] VITALS: BP 122/70
[2019-09-10] MEDS: TAMSULOSIN HCL 0.4 MG CAPSULE PO SCH (08:27)
[2019-09-10] MEDS: FINASTERIDE 5 MG TABLET PO SCH (08:27)
[2019-09-10] MEDS: DILTIAZEM HCL CD 120 MG ER CAPSULE PO SCH (08:27)
[2019-09-10] MEDS: FAMOTIDINE 10 MG/ML 2 ML VIAL IVP SCH (08:27)
[2019-09-10] MEDS: SIMVASTATIN 20 MG TABLET PO SCH (08:27)
[2019-09-10] MEDS: LISINOPRIL 5 MG TABLET PO SCH (08:27)
[2019-09-10] MEDS: VANCOMYCIN HCL 1.25 GM in DEXTROSE 5%-WATER 250 ML IV SCH ×2 (08:27→21:27)
[2019-09-10] MEDS: MULTIVITAMINS WITH MINERALS, THERAPEUTIC TABLET PO SCH (08:27)
[2019-09-10] MEDS: DOCUSATE SODIUM 100 MG CAPSULE PO SCH ×2 (08:27→21:33)
[2019-09-10] MEDS: OXYGEN THERAPY IH SCH (08:29)
[2019-09-10 11:20] VITALS: BP 139/83
[2019-09-10 13:28] LABS: BASOPHILS % (AUTO) 1.2 % (0.0-2.0); EOSINOPHILS % (AUTO) 12.1 % (1.0-6.0); HEMOGLOBIN 14.5 g/dL (13.5-17.5); LYMPHOCYTES # (AUTO) 1.7 K/uL (1.0-4.8); LYMPHOCYTES % (AUTO) 17.1 % (22.0-44.0); MEAN CORPUSCULAR HEMOGLOBIN 26.3 pg (26.0-34.0); MEAN CORPUSCULAR HGB CONC 32.9 G/dL (31.0-37.0); MEAN CORPUSCULAR VOLUME 80 fL (80-100); MONOCYTES # (AUTO) 0.9 K/uL (0.1-1.0); MONOCYTES % (AUTO) 9.2 % (2.0-9.0); NEUTROPHILS # (AUTO) 5.9 K/uL (1.8-7.7); NEUTROPHILS % (AUTO) 60.4 % (40.0-70.0); PLATELET COUNT (AUTO) 382 K/uL (150-450); RED BLOOD CELL COUNT(AUTO) 5.51 MIL/uL (4.50-5.90); RED CELL DISTRIBUTION WIDTH 15.4 % (11.5-14.5)
[2019-09-10 16:25] VITALS: BP 119/66
[2019-09-10] MEDS: MetFORMIN HCL 850 MG TABLET PO SCH (17:35)
[2019-09-10] MEDS: GlipiZIDE 10 MG TABLET PO SCH (17:35)
[2019-09-10 20:21] VITALS: BP 101/50
[2019-09-10] MEDS: GABAPENTIN 300 MG CAPSULE PO SCH (21:34)
[2019-09-10] MEDS: OxyCODONE HCL/ACETAMINOPHEN 5-325 MG TABLET PO PRN (21:34)
[2019-09-11 00:47] VITALS: BP 95/51
[2019-09-11 05:03] VITALS: BP 110/52
[2019-09-11] MEDS: GlipiZIDE 10 MG TABLET PO SCH (05:52)
[2019-09-11 06:05] LABS: ANION GAP 8 mmol/L (8-16); CALCIUM, TOTAL 8.5 mg/dL (8.8-10.5); CARBON DIOXIDE 28 mmol/L (22-29); CHLORIDE 103 mmol/L (98-107); CREATININE 1.12 mg/dL (0.60-1.30); GLOMERULAR FILTR. RATE CALC > 60 mL/min (>60); GLUCOSE,RANDOM 127 mg/dL (70-110); POTASSIUM 3.4 mmol/L (3.5-5.1); SODIUM SERUM 139 mmol/L (136-145); UREA NITROGEN, BLOOD 16 mg/dL (7-18); VANCOMYCIN,RANDOM 20.3 mcg/mL (25.0-50.0)
[2019-09-11] MEDS: OXYGEN THERAPY IH SCH (08:00)
[2019-09-11 08:27] VITALS: BP 120/62
[2019-09-11] MEDS: GABAPENTIN 300 MG CAPSULE PO SCH (08:55)
[2019-09-11] MEDS: TAMSULOSIN HCL 0.4 MG CAPSULE PO SCH (08:55)
[2019-09-11] MEDS: MULTIVITAMINS WITH MINERALS, THERAPEUTIC TABLET PO SCH (08:55)
[2019-09-11] MEDS: SIMVASTATIN 20 MG TABLET PO SCH (08:55)
[2019-09-11] MEDS: POTASSIUM CHLORIDE 20 MEQ ER TABLET PO PRN (08:55)
[2019-09-11] MEDS: DOCUSATE SODIUM 100 MG CAPSULE PO SCH (08:56)
[2019-09-11] MEDS: VANCOMYCIN HCL 1.25 GM in DEXTROSE 5%-WATER 250 ML IV SCH (08:58)
[2019-09-11] MEDS: LISINOPRIL 5 MG TABLET PO SCH (08:59)
[2019-09-11] MEDS: DILTIAZEM HCL CD 120 MG ER CAPSULE PO SCH (08:59)
[2019-09-11] MEDS: FAMOTIDINE 10 MG/ML 2 ML VIAL IVP SCH (08:59)
[2019-09-11] MEDS: MetFORMIN HCL 850 MG TABLET PO SCH ×2 (08:59→12:31)
[2019-09-11] MEDS: FINASTERIDE 5 MG TABLET PO SCH (09:00)
[2019-09-11] MEDS: OxyCODONE HCL/ACETAMINOPHEN 5-325 MG TABLET PO PRN ×2 (10:43→14:08)
[2019-09-11] MEDS: INSULIN LISPRO 100 UNITS/ML SQ PRN (10:56)
[2019-09-11] MEDS ORDERED: FAMO20 PO (13:35)
[2019-09-11] MEDS ORDERED: MULT-248 PO (13:36)
[2019-09-11] MEDS ORDERED: METF750T43 PO (13:38)
[2019-09-11] MEDS ORDERED: SIMV-260 PO (13:39)
[2019-09-11] MEDS ORDERED: VANC1IV IV (13:42)
[2019-09-11] MEDS ORDERED: OXYC-38 PO (13:44)
[2019-09-11 17:13] LABS: GLUCOMETER DEV NAME(LOC) 6N.1; GLUCOSE,POINT OF CARE 215 MG/DL (70-110)
[2019-09-11 17:13] LABS: GLUCOMETER DEV NAME(LOC) 6N.1; GLUCOSE,POINT OF CARE 122 MG/DL (70-110)
[2019-09-11 17:16] LABS: GLUCOMETER DEV NAME(LOC) 4E.2; GLUCOSE,POINT OF CARE 128 MG/DL (70-110)
[2019-09-11 17:16] LABS: GLUCOMETER DEV NAME(LOC) 4E.2; GLUCOSE,POINT OF CARE 243 MG/DL (70-110)
[2019-09-11 19:34] LABS: GLUCOMETER DEV NAME(LOC) 6N.2; GLUCOSE,POINT OF CARE 263 MG/DL (70-110)
== END 2019-09-11 14:50 | DRG 720 ==
LOC: EMS 10:47 → 6N 20:05 → 4E 09-02 14:54 → 6N 09-11 11:00
PROVIDERS: ADMIT Internal Medicine; ATTEND Internal Medicine
PROC: 05HY33Z Insertion of Infusion Device into Upper Vein, Percutaneous Approach (ICD-10-PCS; 2019-08-30)
PROC: B54MZZA Ultrasonography of Right Upper Extremity Veins, Guidance (ICD-10-PCS; 2019-08-30)
PROC: 0JB40ZZ Excision of Right Neck Subcutaneous Tissue and Fascia, Open Approach (ICD-10-PCS; 2019-09-03)
PROC: 0JB50ZZ Excision of Left Neck Subcutaneous Tissue and Fascia, Open Approach (ICD-10-PCS; principal; 2019-09-03 13:00)
DX: A41.9 Sepsis, unspecified organism (principal); E11.65 Type 2 diabetes mellitus with hyperglycemia; I10 Essential (primary) hypertension; J45.909 Unspecified asthma, uncomplicated; N40.0 Benign prostatic hyperplasia without lower urinary tract symptoms; B95.62 Methicillin resistant Staphylococcus aureus infection as the cause of diseases classified elsewhere; L02.11 Cutaneous abscess of neck; L03.221 Cellulitis of neck; E78.00 Pure hypercholesterolemia, unspecified; E78.5 Hyperlipidemia, unspecified; Z83.3 Family history of diabetes mellitus; Z79.899 Other long term (current) drug therapy
CPT/HCPCS: 36245; 36569; 70491; 76937; 83036; 83605; 84132; 87040; 87070; 87205; 88304; 97161; 97165; 97535; G0378; J0330; J0690; J1170; J2250; J2405; J2543; J2704; J3010; J3370; J3490; J7030; J7040; J7050; J7060

== ENCOUNTER 2020-08-14 13:14 | Inpatient (IN) | payer OTHER ==
[~2020-08-14] VITALS: Ht 177.8 cm; Wt 97.5 kg
[~2020-08-14 13:14] MED LIST changes: +FAMO20 PO; +GABA-1181 PO; -GABA-531 PO; +GLIP10 PO; -GLIP5TAB11 PO; -LISI-660 PO; +LISI-892 PO; +MULT-248 PO; +OXYC-38 PO; -PIOG15TA6 PO; +VANC1IV IV
[2020-08-14] MEDS ORDERED: DEXAMETHASONE SOD PHOS 4 MG/ML 5 ML VIAL IVP ONE (14:00)
[2020-08-14] MEDS ORDERED: AZITHROMYCIN 500 MG/NS 250 ML IV ONE (14:00)
[2020-08-14] MEDS ORDERED: CefTRIAXone 1 GM/DEXTROSE 50 ML IV ONE (14:00)
[2020-08-14] MEDS ORDERED: 0.9% SODIUM CHLORIDE 10 ML SYRINGE IVP PRN ×2 (14:15→16:00)
[2020-08-14] MEDS ORDERED: ACETAMINOPHEN 325 MG TABLET PO PRN ×2 (14:15→16:00)
[2020-08-14] MEDS ORDERED: ONDANSETRON HCL 4 MG/2 ML VIAL IVP PRN ×2 (14:15→16:00)
[2020-08-14] MEDS: OXYGEN THERAPY IH SCH ×2 (14:46→20:09)
[2020-08-14 15:19] LABS: ABG A-A DIFF O2 637.8 mmHg (10-20.0); ABG BASE EXCESS -6.4 mmol/L (-2.0-3.0); ABG CARBOXYHEMOGLOBIN 1.1 % (0.0-1.5); ABG HCO3 20.2 mmol/L (22.0-26.0); ABG OXYGEN CONTENT 16.2 mL/dL (15.0-23.0); ABG OXYGEN SATURATION 85.3 % (95.0-98.0); ABG OXYHEMOGLOBIN 84.4 % (94.0-100.0); ABG PCO2 28 mmHg (35-45); ABG PH 7.431 (7.35-7.450); ABG TOTAL HEMOGLOBIN 13.7 G/dL (12.0-18.0); PO2, ARTERIAL BG 47.7 mmHg (79.0-87.0); SITE, BLOOD GAS RT RADIAL; SOURCE, BLOOD GAS ARTERIAL; TEMPERATURE, FAHRENHEIT, BG 98.6 FAHREN (96.0-98.6)
[2020-08-14 15:20] LABS: O2 DEVICE,BLOOD GAS NONREBREATHER (ROOM AIR)
[2020-08-14] MEDS ORDERED: ALBUTEROL SULFATE/IPRATROPIUM 100-20 MCG/SPRAY 4 GM INHALER IH PRN (15:30)
[2020-08-14] MEDS ORDERED: DEXTROSE 50%-WATER 25 GM/50 ML SYRINGE IVP PRN (15:30)
[2020-08-14] MEDS ORDERED: FAMOTIDINE 10 MG/ML 2 ML VIAL IVP SCH (15:30)
[2020-08-14 15:38] LABS: BASOPHILS % (AUTO) 0.3 % (0.0-2.0); EOSINOPHILS % (AUTO) 0.6 % (1.0-6.0); HEMATOCRIT 38.9 % (41-53); HEMOGLOBIN 12.6 g/dL (13.5-17.5); LYMPHOCYTES # (AUTO) 0.8 K/uL (1.0-4.8); MEAN CORPUSCULAR HEMOGLOBIN 25.6 pg (26.0-34.0); MEAN CORPUSCULAR HGB CONC 32.4 G/dL (31.0-37.0); MEAN CORPUSCULAR VOLUME 79 fL (80-100); MONOCYTES # (AUTO) 0.6 K/uL (0.1-1.0); MONOCYTES % (AUTO) 7.7 % (2.0-9.0); NEUTROPHILS # (AUTO) 5.8 K/uL (1.8-7.7); NEUTROPHILS % (AUTO) 80.4 % (40.0-70.0); PLATELET COUNT (AUTO) 181 K/uL (150-450); RED BLOOD CELL COUNT(AUTO) 4.91 MIL/uL (4.50-5.90); RED CELL DISTRIBUTION WIDTH 14.5 % (11.5-14.5)
[2020-08-14 15:50] LABS: INR 1.1 (0.9-1.1); PROTHROMBIN TIME 12.1 SEC (9.4-11.6)
[2020-08-14] MEDS ORDERED: BISACODYL 10 MG RECTAL RECTAL SUPPOSITORY PR PRN (16:00)
[2020-08-14 16:04] LABS: COVID AG,FIA SOURCE NASOPHARYNGEAL
[2020-08-14 16:12] LABS: CALCIUM, TOTAL 8.7 mg/dL (8.8-10.5); CREATININE 1.66 mg/dL (0.60-1.30); POTASSIUM 4.4 mmol/L (3.5-5.1)
[2020-08-14 16:22] LABS: LACTIC ACID 2.7 mmol/L (0.4-2.0)
[2020-08-14 16:28] LABS: ALBUMIN 3.3 g/dL (3.4-5.0); BILIRUBIN,TOTAL 0.5 mg/dL (0.1-1.0); TOTAL PROTEIN, SERUM 7.8 g/dL (6.4-8.2)
[2020-08-14 16:44] LABS: C-REACTIVE PROTEIN QUANT 13.69 mg/dL (0.00-0.30); CHOL/HDL RATIO 3.9 (4.2-7.3); CHOLESTEROL 130 mg/dL (131-200); FERRITIN 398 ng/mL (26-388); FREE T4 (FREE THYROXINE) 1.91 ng/dL (0.76-1.46); HDL CHOLESTEROL 33 mg/dL (40-60); LACTATE DEHYDROGENASE 798 U/L (85-227); LDL CHOL (CALC.) 71 mg/dL (0-130); LIPASE 195 U/L (73-393); THYROID STIMULATING HORMONE 0.51 uIU/mL (0.36-3.74); TRIGLYCERIDES 130 mg/dL (15-150)
[2020-08-14 16:59] LABS: D-DIMER 35.2 mg/L FEU (0.00-0.50)
[2020-08-14] MEDS ORDERED: SODIUM CHLORIDE 0.9% 1,000 ML IV ONE (17:00)
[2020-08-14] MEDS ORDERED: HEPARIN SODIUM,PORCINE 5,000 UNITS/ML VIAL IVP PRN ×2 (17:00)
[2020-08-14] MEDS: ASPIRIN 81 MG CHEWABLE TABLET PO SCH (17:00)
[2020-08-14] MEDS ORDERED: ASPIRIN 325 MG TABLET PO ONE (17:00)
[2020-08-14] MEDS ORDERED: HEPARIN SODIUM,PORCINE 5,000 UNITS/ML VIAL IVP ONE (17:00)
[2020-08-14 17:05] LABS: INFLUENZA TYPE A NEGATIVE FOR TYPE A (NEGATIVE); INFLUENZA TYPE B NEGATIVE FOR TYPE B (NEGATIVE)
[2020-08-14] MEDS: HEPARIN SODIUM 25000 UNITS/D5W 250 ML IV PRN (17:19)
[2020-08-14 18:20] LABS: INR 1.2 (0.9-1.1); PROTHROMBIN TIME 12.8 SEC (9.4-11.6)
[2020-08-14 18:43] VITALS: BP 151/75
[2020-08-14] MEDS ORDERED: REMDESIVIR 200 MG in SODIUM CHLORIDE 0.9% 250 ML IV ONE (20:00)
[2020-08-14] MEDS ORDERED: OXYGEN THERAPY IH SCH (20:00)
[2020-08-14] MEDS: ASCORBIC ACID 500 MG TABLET PO SCH (20:10)
[2020-08-14] MEDS: GABAPENTIN 300 MG CAPSULE PO SCH (20:10)
[2020-08-14] MEDS: ZINC SULFATE 220 MG CAPSULE PO SCH (20:10)
[2020-08-14] MEDS: CHOLECALCIFEROL (VIT D3) 2,000 UNITS [50 MCG] TABLET PO SCH (20:10)
[2020-08-14] MEDS: BENZONATATE 100 MG CAPSULE PO PRN (20:36)
[2020-08-14] MEDS ORDERED: ENOXAPARIN SODIUM 60 MG/0.6 ML PF SYRINGE SQ SCH (21:00)
[2020-08-14] MEDS: ALBUTEROL SULFATE/IPRATROPIUM 100-20 MCG/SPRAY 4 GM INHALER IH SCH (21:52)
[2020-08-14] MEDS: FAMOTIDINE 10 MG/ML 2 ML VIAL IVP SCH (21:53)
[2020-08-14] MEDS: INSULIN LISPRO 100 UNITS/ML SQ PRN (21:56)
[2020-08-15 00:29] VITALS: BP 110/68
[2020-08-15] MEDS ORDERED: PNEUMOCOCCAL VACCINE POLYVALENT 0.5 ML VIAL [PPSV23] IM ONE (00:30)
[2020-08-15] MEDS: ALBUTEROL SULFATE/IPRATROPIUM 100-20 MCG/SPRAY 4 GM INHALER IH SCH ×4 (00:39→18:43)
[2020-08-15 01:57] LABS: GLUCOMETER DEV NAME(LOC) 5N.1B; GLUCOSE,POINT OF CARE 271 MG/DL (70-110)
[2020-08-15] MEDS: DOXYCYCLINE HYCLATE 100 MG in DEXTROSE 5%-WATER 100 ML IV SCH ×2 (04:05→15:57)
[2020-08-15 05:31] VITALS: BP 98/55
[2020-08-15] MEDS: BENZONATATE 100 MG CAPSULE PO PRN ×3 (06:16→21:58)
[2020-08-15] MEDS: INSULIN LISPRO 100 UNITS/ML SQ PRN ×4 (06:19→22:02)
[2020-08-15 07:28] LABS: GLUCOMETER DEV NAME(LOC) 5S.1; GLUCOSE,POINT OF CARE 233 MG/DL (70-110)
[2020-08-15 07:54] LABS: EOSINOPHILS % (AUTO) 0 % (1.0-6.0); HEMATOCRIT 36.2 % (41-53); HEMOGLOBIN 11.8 g/dL (13.5-17.5); LYMPHOCYTES # (AUTO) 0.8 K/uL (1.0-4.8); LYMPHOCYTES % (AUTO) 9.9 % (22.0-44.0); MEAN CORPUSCULAR HGB CONC 32.8 G/dL (31.0-37.0); MEAN CORPUSCULAR VOLUME 80 fL (80-100); MONOCYTES # (AUTO) 0.7 K/uL (0.1-1.0); MONOCYTES % (AUTO) 9.1 % (2.0-9.0); NEUTROPHILS # (AUTO) 6.3 K/uL (1.8-7.7); PLATELET COUNT (AUTO) 168 K/uL (150-450); RED BLOOD CELL COUNT(AUTO) 4.55 MIL/uL (4.50-5.90); RED CELL DISTRIBUTION WIDTH 14.5 % (11.5-14.5)
[2020-08-15 08:01] VITALS: BP 103/52
[2020-08-15 08:24] LABS: ALBUMIN 2.8 g/dL (3.4-5.0); BILIRUBIN,TOTAL 0.3 mg/dL (0.1-1.0); CREATININE 1.99 mg/dL (0.60-1.30); POTASSIUM 4.7 mmol/L (3.5-5.1); TOTAL PROTEIN, SERUM 6.9 g/dL (6.4-8.2)
[2020-08-15] MEDS: GABAPENTIN 300 MG CAPSULE PO SCH ×2 (08:33→21:58)
[2020-08-15] MEDS: TAMSULOSIN HCL 0.4 MG CAPSULE PO SCH (08:33)
[2020-08-15] MEDS: ASCORBIC ACID 500 MG TABLET PO SCH (08:33)
[2020-08-15] MEDS: DEXAMETHASONE SOD PHOS 4 MG/ML VIAL IVP SCH (08:34)
[2020-08-15] MEDS: ASPIRIN 81 MG CHEWABLE TABLET PO SCH (08:34)
[2020-08-15] MEDS: FAMOTIDINE 10 MG/ML 2 ML VIAL IVP SCH ×2 (08:34→21:58)
[2020-08-15] MEDS: ZINC SULFATE 220 MG CAPSULE PO SCH ×2 (08:34→21:58)
[2020-08-15] MEDS: MULTIVITAMINS WITH MINERALS, THERAPEUTIC TABLET PO SCH (08:34)
[2020-08-15] MEDS: CHOLECALCIFEROL (VIT D3) 2,000 UNITS [50 MCG] TABLET PO SCH (08:34)
[2020-08-15] MEDS: FINASTERIDE 5 MG TABLET PO SCH (08:35)
[2020-08-15 08:44] LABS: C-REACTIVE PROTEIN QUANT 11.23 mg/dL (0.00-0.30)
[2020-08-15 08:48] LABS: D-DIMER 35.2 mg/L FEU (0.00-0.50)
[2020-08-15] MEDS ORDERED: SIMVASTATIN 20 MG TABLET PO SCH (09:00)
[2020-08-15] MEDS ORDERED: METF-961 PO (09:29)
[2020-08-15] MEDS ORDERED: ATORVASTATIN CALCIUM 20 MG TABLET PO SCH (10:00)
[2020-08-15] MEDS: ATORVASTATIN CALCIUM 20 MG TABLET PO SCH (10:40)
[2020-08-15 11:41] VITALS: BP 120/71
[2020-08-15 12:07] LABS: ERYTHROCYTE SEDIMENTATION RATE 17 MM/HR (0-15)
[2020-08-15] MEDS ORDERED: MAA ALBUMIN AGGREGATED TC99M/UD<10MCL ISOTOPE 1 EA INJ INJ ONE (13:00)
[2020-08-15] MEDS ORDERED: CefTRIAXone 1 GM/DEXTROSE 50 ML IV SCH (15:00)
[2020-08-15] MEDS ORDERED: SODIUM CHLORIDE 0.9% 500 ML IV ONE (15:09)
[2020-08-15] MEDS: HEPARIN SODIUM 25000 UNITS/D5W 250 ML IV PRN (15:12)
[2020-08-15] MEDS ORDERED: PIOG45TA64 PO (15:16)
[2020-08-15] MEDS ORDERED: LORA10TA7 PO (15:16)
[2020-08-15] MEDS ORDERED: ASPI-1111 PO (15:16)
[2020-08-15] MEDS ORDERED: LISI-658 PO (15:16)
[2020-08-15 15:26] VITALS: BP 127/70
[2020-08-15 19:29] VITALS: BP 113/67
[2020-08-15] MEDS: REMDESIVIR 100 MG in SODIUM CHLORIDE 0.9% 250 ML IV SCH (20:58)
[2020-08-15 22:44] LABS: GLUCOMETER DEV NAME(LOC) 5N.1B; GLUCOSE,POINT OF CARE 274 MG/DL (70-110)
[2020-08-15 22:44] LABS: GLUCOMETER DEV NAME(LOC) 5N.1B; GLUCOSE,POINT OF CARE 252 MG/DL (70-110)
[2020-08-15 22:44] LABS: GLUCOMETER DEV NAME(LOC) 5N.1B; GLUCOSE,POINT OF CARE 258 MG/DL (70-110)
[2020-08-16 00:23] VITALS: BP 109/55
[2020-08-16] MEDS: DOXYCYCLINE HYCLATE 100 MG in DEXTROSE 5%-WATER 100 ML IV SCH (04:45)
[2020-08-16 05:40] VITALS: BP 125/62
[2020-08-16] MEDS: ALBUTEROL SULFATE/IPRATROPIUM 100-20 MCG/SPRAY 4 GM INHALER IH SCH ×5 (06:00→23:19)
[2020-08-16] MEDS: BENZONATATE 100 MG CAPSULE PO PRN ×2 (06:25→20:31)
[2020-08-16] MEDS: INSULIN LISPRO 100 UNITS/ML SQ PRN ×4 (06:25→21:58)
[2020-08-16 07:03] VITALS: BP 130/68
[2020-08-16 08:26] LABS: EOSINOPHILS % (AUTO) 0 % (1.0-6.0); HEMATOCRIT 36.1 % (41-53); HEMOGLOBIN 11.6 g/dL (13.5-17.5); LYMPHOCYTES # (AUTO) 0.9 K/uL (1.0-4.8); LYMPHOCYTES % (AUTO) 6.9 % (22.0-44.0); MEAN CORPUSCULAR HEMOGLOBIN 25.6 pg (26.0-34.0); MEAN CORPUSCULAR HGB CONC 32.1 G/dL (31.0-37.0); MEAN CORPUSCULAR VOLUME 80 fL (80-100); MONOCYTES # (AUTO) 0.9 K/uL (0.1-1.0); MONOCYTES % (AUTO) 6.7 % (2.0-9.0); NEUTROPHILS # (AUTO) 11.4 K/uL (1.8-7.7); PLATELET COUNT (AUTO) 238 K/uL (150-450); RED BLOOD CELL COUNT(AUTO) 4.53 MIL/uL (4.50-5.90); RED CELL DISTRIBUTION WIDTH 14.6 % (11.5-14.5)
[2020-08-16 08:29] LABS: GLUCOMETER DEV NAME(LOC) 5S.1; GLUCOSE,POINT OF CARE 219 MG/DL (70-110)
[2020-08-16 08:35] LABS: NEUTROPHILS % (AUTO) 86.4 % (40.0-70.0)
[2020-08-16 08:52] LABS: D-DIMER 17.2 mg/L FEU (0.00-0.50)
[2020-08-16 09:18] LABS: ALBUMIN 2.8 g/dL (3.4-5.0); BILIRUBIN,TOTAL 0.3 mg/dL (0.1-1.0); C-REACTIVE PROTEIN QUANT 5.19 mg/dL (0.00-0.30); CALCIUM, TOTAL 7.9 mg/dL (8.8-10.5); CREATININE 1.7 mg/dL (0.60-1.30); POTASSIUM 4.4 mmol/L (3.5-5.1); TOTAL PROTEIN, SERUM 6.8 g/dL (6.4-8.2)
[2020-08-16 09:42] LABS: ERYTHROCYTE SEDIMENTATION RATE 10 MM/HR (0-15)
[2020-08-16] MEDS: FINASTERIDE 5 MG TABLET PO SCH (09:46)
[2020-08-16] MEDS: DEXAMETHASONE SOD PHOS 4 MG/ML VIAL IVP SCH (09:46)
[2020-08-16] MEDS: ATORVASTATIN CALCIUM 20 MG TABLET PO SCH (09:46)
[2020-08-16] MEDS: FAMOTIDINE 10 MG/ML 2 ML VIAL IVP SCH (09:46)
[2020-08-16] MEDS: ZINC SULFATE 220 MG CAPSULE PO SCH ×2 (09:46→20:31)
[2020-08-16] MEDS: MULTIVITAMINS WITH MINERALS, THERAPEUTIC TABLET PO SCH (09:47)
[2020-08-16] MEDS: ASPIRIN 81 MG CHEWABLE TABLET PO SCH (09:47)
[2020-08-16] MEDS: TAMSULOSIN HCL 0.4 MG CAPSULE PO SCH (09:47)
[2020-08-16] MEDS: GABAPENTIN 300 MG CAPSULE PO SCH ×2 (09:47→20:31)
[2020-08-16] MEDS: CHOLECALCIFEROL (VIT D3) 2,000 UNITS [50 MCG] TABLET PO SCH (09:47)
[2020-08-16] MEDS: ASCORBIC ACID 500 MG TABLET PO SCH (09:47)
[2020-08-16] MEDS: DOCUSATE SODIUM 100 MG CAPSULE PO PRN (09:47)
[2020-08-16] MEDS: GuaiFENesin/CODEINE [SUGAR FREE] 200-20MG/10 ML SYRUP UDCUP PO PRN ×2 (11:43→17:58)
[2020-08-16] MEDS: HEPARIN SODIUM 25000 UNITS/D5W 250 ML IV PRN (11:45)
[2020-08-16 11:47] VITALS: BP 128/71
[2020-08-16 14:53] VITALS: BP 132/68
[2020-08-16] MEDS ORDERED: HEPARIN SODIUM 25000 UNITS/D5W 250 ML IV PRN (16:00)
[2020-08-16] MEDS ORDERED: HEPARIN SODIUM,PORCINE 5,000 UNITS/ML VIAL IVP PRN ×2 (16:00)
[2020-08-16 16:49] LABS: APPEARANCE,URINE CLEAR (CLEAR); BILIRUBIN,URINE NEGATIVE (NEGATIVE); GLUCOSE, URINE (UA) NEGATIVE (NEGATIVE); KETONES,URINE NEGATIVE (NEGATIVE); LEUKOCYTE ESTERASE ,URINE NEGATIVE (NEGATIVE); NITRATE,URINE NEGATIVE (NEGATIVE); OCCULT BLOOD,URINE NEGATIVE (NEGATIVE); PROTEIN,URINE TRACE (NEGATIVE); UROBILINOGEN,URINE 0.2 mg/dL (<=1.0)
[2020-08-16 16:53] LABS: CREATININE,URINE RANDOM 71.9 mg/dL (30.0-125.0); SODIUM,URINE RANDOM 39 mmol/l (20-110); UREA NITROGEN,URINE RANDOM 695 mg/dL (350-1000)
[2020-08-16 17:00] LABS: BACTERIA,URINE None Seen /HPF (None Seen); RBC,URINE None Seen /HPF (0-2); WBC,URINE None Seen /HPF (0-5)
[2020-08-16 17:35] LABS: BASOPHILS % (AUTO) 0.1 % (0.0-2.0); EOSINOPHILS % (AUTO) 0 % (1.0-6.0); HEMATOCRIT 37.1 % (41-53); LYMPHOCYTES # (AUTO) 0.7 K/uL (1.0-4.8); LYMPHOCYTES % (AUTO) 4.7 % (22.0-44.0); MEAN CORPUSCULAR HEMOGLOBIN 25.7 pg (26.0-34.0); MEAN CORPUSCULAR HGB CONC 32.5 G/dL (31.0-37.0); MEAN CORPUSCULAR VOLUME 79 fL (80-100); MONOCYTES # (AUTO) 0.7 K/uL (0.1-1.0); MONOCYTES % (AUTO) 4.7 % (2.0-9.0); PLATELET COUNT (AUTO) 282 K/uL (150-450); RED BLOOD CELL COUNT(AUTO) 4.68 MIL/uL (4.50-5.90); RED CELL DISTRIBUTION WIDTH 14.9 % (11.5-14.5)
[2020-08-16 17:39] LABS: NEUTROPHILS % (AUTO) 90.5 % (40.0-70.0)
[2020-08-16 18:40] LABS: INR 1.2 (0.9-1.1); PROTHROMBIN TIME 12.8 SEC (9.4-11.6)
[2020-08-16 20:08] VITALS: BP 122/72
[2020-08-16] MEDS: REMDESIVIR 100 MG in SODIUM CHLORIDE 0.9% 250 ML IV SCH (20:30)
[2020-08-16] MEDS: PANTOPRAZOLE SODIUM 40 MG/VIAL IVP SCH (20:31)
[2020-08-16 22:46] LABS: HEMATOCRIT 36.5 % (41-53); HEMOGLOBIN 11.9 g/dL (13.5-17.5)
[2020-08-17 00:28] VITALS: BP 142/76
[2020-08-17] MEDS ORDERED: BENZOCAINE/MENTHOL LOZENGE PO ONE (00:30)
[2020-08-17] MEDS: MELATONIN 3 MG TABLET PO PRN ×2 (00:44→23:33)
[2020-08-17] MEDS: GuaiFENesin/CODEINE [SUGAR FREE] 200-20MG/10 ML SYRUP UDCUP PO PRN ×2 (00:44→00:45)
[2020-08-17 02:04] LABS: HEMATOCRIT 35.1 % (41-53); HEMOGLOBIN 11.4 g/dL (13.5-17.5)
[2020-08-17 05:12] VITALS: BP 135/74
[2020-08-17] MEDS: ALBUTEROL SULFATE/IPRATROPIUM 100-20 MCG/SPRAY 4 GM INHALER IH SCH ×4 (06:11→23:28)
[2020-08-17] MEDS: INSULIN LISPRO 100 UNITS/ML SQ PRN ×4 (06:12→23:33)
[2020-08-17 07:47] LABS: BASOPHILS % (AUTO) 0.1 % (0.0-2.0); EOSINOPHILS % (AUTO) 0 % (1.0-6.0); HEMATOCRIT 35.8 % (41-53); HEMOGLOBIN 11.7 g/dL (13.5-17.5); LYMPHOCYTES # (AUTO) 0.8 K/uL (1.0-4.8); LYMPHOCYTES % (AUTO) 6.7 % (22.0-44.0); MEAN CORPUSCULAR HEMOGLOBIN 25.6 pg (26.0-34.0); MEAN CORPUSCULAR HGB CONC 32.6 G/dL (31.0-37.0); MEAN CORPUSCULAR VOLUME 79 fL (80-100); MONOCYTES # (AUTO) 0.7 K/uL (0.1-1.0); MONOCYTES % (AUTO) 6.3 % (2.0-9.0); NEUTROPHILS # (AUTO) 10.3 K/uL (1.8-7.7); PLATELET COUNT (AUTO) 295 K/uL (150-450); RED BLOOD CELL COUNT(AUTO) 4.55 MIL/uL (4.50-5.90); RED CELL DISTRIBUTION WIDTH 14.9 % (11.5-14.5)
[2020-08-17 07:51] LABS: NEUTROPHILS % (AUTO) 86.9 % (40.0-70.0)
[2020-08-17 07:55] VITALS: BP 128/78
[2020-08-17 08:08] LABS: HEMOGLOBIN A1C 7.3 % (3.8-5.6)
[2020-08-17 08:10] LABS: D-DIMER 7.89 mg/L FEU (0.00-0.50)
[2020-08-17] MEDS: CHOLECALCIFEROL (VIT D3) 2,000 UNITS [50 MCG] TABLET PO SCH (08:36)
[2020-08-17] MEDS: ASCORBIC ACID 500 MG TABLET PO SCH (08:37)
[2020-08-17] MEDS: FINASTERIDE 5 MG TABLET PO SCH (08:37)
[2020-08-17] MEDS: TAMSULOSIN HCL 0.4 MG CAPSULE PO SCH (08:37)
[2020-08-17] MEDS: PANTOPRAZOLE SODIUM 40 MG/VIAL IVP SCH ×2 (08:37→22:00)
[2020-08-17] MEDS: ATORVASTATIN CALCIUM 20 MG TABLET PO SCH (08:37)
[2020-08-17] MEDS: ZINC SULFATE 220 MG CAPSULE PO SCH ×2 (08:37→22:00)
[2020-08-17] MEDS: ASPIRIN 81 MG CHEWABLE TABLET PO SCH (08:37)
[2020-08-17] MEDS: MULTIVITAMINS WITH MINERALS, THERAPEUTIC TABLET PO SCH (08:37)
[2020-08-17] MEDS: GABAPENTIN 300 MG CAPSULE PO SCH ×2 (08:37→22:00)
[2020-08-17] MEDS: DEXAMETHASONE SOD PHOS 4 MG/ML VIAL IVP SCH (08:38)
[2020-08-17 08:51] LABS: ALBUMIN 2.8 g/dL (3.4-5.0); BILIRUBIN,TOTAL 0.4 mg/dL (0.1-1.0); C-REACTIVE PROTEIN QUANT 4.1 mg/dL (0.00-0.30); CALCIUM, TOTAL 8.1 mg/dL (8.8-10.5); CREATININE 1.56 mg/dL (0.60-1.30); MAGNESIUM 2.1 mg/dL (1.80-2.40); PHOSPHORUS 4.6 mg/dL (2.5-4.9); POTASSIUM 4.7 mmol/L (3.5-5.1); TOTAL PROTEIN, SERUM 6.8 g/dL (6.4-8.2)
[2020-08-17 09:11] LABS: ERYTHROCYTE SEDIMENTATION RATE 7 MM/HR (0-15)
[2020-08-17 11:50] VITALS: BP 148/69
[2020-08-17] MEDS ORDERED: HEPARIN SODIUM 25000 UNITS/D5W 250 ML IV PRN (13:48)
[2020-08-17] MEDS ORDERED: HEPARIN SODIUM,PORCINE 5,000 UNITS/ML VIAL IVP PRN ×2 (14:00)
[2020-08-17 15:10] VITALS: BP 135/79
[2020-08-17 15:59] LABS: GLUCOMETER DEV NAME(LOC) 5N.1B; GLUCOSE,POINT OF CARE 226 MG/DL (70-110)
[2020-08-17 15:59] LABS: GLUCOMETER DEV NAME(LOC) 5N.1B; GLUCOSE,POINT OF CARE 256 MG/DL (70-110)
[2020-08-17 16:38] LABS: HEMOGLOBIN 12.2 g/dL (13.5-17.5)
[2020-08-17] MEDS: BENZONATATE 100 MG CAPSULE PO PRN (17:40)
[2020-08-17 18:04] LABS: GLUCOMETER DEV NAME(LOC) 5S.1; GLUCOSE,POINT OF CARE 219 MG/DL (70-110)
[2020-08-17 18:04] LABS: GLUCOMETER DEV NAME(LOC) 5S.1; GLUCOSE,POINT OF CARE 269 MG/DL (70-110)
[2020-08-17 18:05] LABS: GLUCOMETER DEV NAME(LOC) 5S.1; GLUCOSE,POINT OF CARE 197 MG/DL (70-110)
[2020-08-17 18:05] LABS: GLUCOMETER DEV NAME(LOC) 5S.1; GLUCOSE,POINT OF CARE 305 MG/DL (70-110)
[2020-08-17 20:40] VITALS: BP 122/71
[2020-08-17 21:21] LABS: HEMATOCRIT 37.3 % (41-53); HEMOGLOBIN 12.1 g/dL (13.5-17.5)
[2020-08-17] MEDS: REMDESIVIR 100 MG in SODIUM CHLORIDE 0.9% 250 ML IV SCH (22:00)
[2020-08-18 00:20] VITALS: BP 138/77
[2020-08-18] MEDS: BENZONATATE 100 MG CAPSULE PO PRN ×3 (04:24→21:06)
[2020-08-18 04:55] VITALS: BP 136/76
[2020-08-18] MEDS: INSULIN LISPRO 100 UNITS/ML SQ PRN ×4 (05:40→21:14)
[2020-08-18] MEDS: ALBUTEROL SULFATE/IPRATROPIUM 100-20 MCG/SPRAY 4 GM INHALER IH SCH ×3 (05:46→18:07)
[2020-08-18 06:30] LABS: BASOPHILS % (AUTO) 0.1 % (0.0-2.0); EOSINOPHILS % (AUTO) 0.2 % (1.0-6.0); HEMATOCRIT 36.2 % (41-53); HEMOGLOBIN 11.9 g/dL (13.5-17.5); LYMPHOCYTES # (AUTO) 0.6 K/uL (1.0-4.8); MEAN CORPUSCULAR VOLUME 79 fL (80-100); MONOCYTES # (AUTO) 0.6 K/uL (0.1-1.0); MONOCYTES % (AUTO) 6.3 % (2.0-9.0); PLATELET COUNT (AUTO) 312 K/uL (150-450); RED BLOOD CELL COUNT(AUTO) 4.59 MIL/uL (4.50-5.90); RED CELL DISTRIBUTION WIDTH 14.9 % (11.5-14.5)
[2020-08-18 07:07] LABS: NEUTROPHILS % (AUTO) 86.4 % (40.0-70.0)
[2020-08-18 07:47] LABS: ALBUMIN 2.8 g/dL (3.4-5.0); BILIRUBIN,TOTAL 0.4 mg/dL (0.1-1.0); CALCIUM, TOTAL 8.1 mg/dL (8.8-10.5); CREATININE 1.31 mg/dL (0.60-1.30); MAGNESIUM 1.9 mg/dL (1.80-2.40); PHOSPHORUS 4.3 mg/dL (2.5-4.9); POTASSIUM 4.3 mmol/L (3.5-5.1); TOTAL PROTEIN, SERUM 6.7 g/dL (6.4-8.2)
[2020-08-18 07:52] VITALS: BP 149/80
[2020-08-18] MEDS: DEXAMETHASONE SOD PHOS 4 MG/ML VIAL IVP SCH (08:26)
[2020-08-18] MEDS: MULTIVITAMINS WITH MINERALS, THERAPEUTIC TABLET PO SCH (08:26)
[2020-08-18] MEDS: ASPIRIN 81 MG CHEWABLE TABLET PO SCH (08:28)
[2020-08-18] MEDS: PANTOPRAZOLE SODIUM 40 MG/VIAL IVP SCH ×2 (08:28→20:55)
[2020-08-18] MEDS: ASCORBIC ACID 500 MG TABLET PO SCH (08:28)
[2020-08-18] MEDS: ZINC SULFATE 220 MG CAPSULE PO SCH ×2 (08:28→20:54)
[2020-08-18] MEDS: CHOLECALCIFEROL (VIT D3) 2,000 UNITS [50 MCG] TABLET PO SCH (08:28)
[2020-08-18] MEDS: FINASTERIDE 5 MG TABLET PO SCH (08:29)
[2020-08-18] MEDS: GABAPENTIN 300 MG CAPSULE PO SCH ×2 (08:29→20:54)
[2020-08-18] MEDS: TAMSULOSIN HCL 0.4 MG CAPSULE PO SCH (08:29)
[2020-08-18] MEDS: DOCUSATE SODIUM 100 MG CAPSULE PO PRN (08:29)
[2020-08-18] MEDS: ATORVASTATIN CALCIUM 20 MG TABLET PO SCH (08:29)
[2020-08-18 08:48] LABS: D-DIMER 11.11 mg/L FEU (0.00-0.50)
[2020-08-18 09:03] LABS: C-REACTIVE PROTEIN QUANT 3.34 mg/dL (0.00-0.30)
[2020-08-18 11:22] VITALS: BP 146/73
[2020-08-18 11:36] LABS: ERYTHROCYTE SEDIMENTATION RATE 8 MM/HR (0-15)
[2020-08-18 12:36] LABS: HEMATOCRIT 38.8 % (41-53); HEMOGLOBIN 12.6 g/dL (13.5-17.5)
[2020-08-18 15:48] VITALS: BP 155/68
[2020-08-18 16:04] LABS: HEMATOCRIT 38.2 % (41-53); HEMOGLOBIN 12.5 g/dL (13.5-17.5)
[2020-08-18 20:00] VITALS: BP 138/74
[2020-08-18] MEDS: MELATONIN 3 MG TABLET PO PRN (20:54)
[2020-08-18] MEDS: REMDESIVIR 100 MG in SODIUM CHLORIDE 0.9% 250 ML IV SCH (20:54)
[2020-08-19] VITALS (11 sets, daily range): BP systolic 123–150; BP diastolic 66–87
[2020-08-19 00:50] LABS: HEMATOCRIT 39.7 % (41-53); HEMOGLOBIN 12.8 g/dL (13.5-17.5)
[2020-08-19] MEDS: ALBUTEROL SULFATE/IPRATROPIUM 100-20 MCG/SPRAY 4 GM INHALER IH SCH ×4 (01:11→18:24)
[2020-08-19] MEDS ORDERED: SODIUM CHLORIDE 0.9% 500 ML IV ONE ×2 (01:18→06:06)
[2020-08-19 02:43] LABS: GLUCOMETER DEV NAME(LOC) 5N.1B; GLUCOSE,POINT OF CARE 220 MG/DL (70-110)
[2020-08-19 02:43] LABS: GLUCOMETER DEV NAME(LOC) 5N.1B; GLUCOSE,POINT OF CARE 294 MG/DL (70-110)
[2020-08-19 02:43] LABS: GLUCOMETER DEV NAME(LOC) 5N.1B; GLUCOSE,POINT OF CARE 343 MG/DL (70-110)
[2020-08-19] MEDS: GuaiFENesin/CODEINE [SUGAR FREE] 200-20MG/10 ML SYRUP UDCUP PO PRN (04:00)
[2020-08-19] MEDS: INSULIN LISPRO 100 UNITS/ML SQ PRN ×4 (06:09→20:06)
[2020-08-19 06:55] LABS: EOSINOPHILS % (AUTO) 0.8 % (1.0-6.0); HEMATOCRIT 37.3 % (41-53); HEMOGLOBIN 12.2 g/dL (13.5-17.5); LYMPHOCYTES # (AUTO) 0.7 K/uL (1.0-4.8); LYMPHOCYTES % (AUTO) 6.5 % (22.0-44.0); MEAN CORPUSCULAR HEMOGLOBIN 25.7 pg (26.0-34.0); MEAN CORPUSCULAR HGB CONC 32.7 G/dL (31.0-37.0); MEAN CORPUSCULAR VOLUME 79 fL (80-100); MONOCYTES # (AUTO) 0.6 K/uL (0.1-1.0); MONOCYTES % (AUTO) 5.9 % (2.0-9.0); PLATELET COUNT (AUTO) 354 K/uL (150-450); RED BLOOD CELL COUNT(AUTO) 4.73 MIL/uL (4.50-5.90); RED CELL DISTRIBUTION WIDTH 14.5 % (11.5-14.5)
[2020-08-19 07:28] LABS: NEUTROPHILS % (AUTO) 86.8 % (40.0-70.0)
[2020-08-19 08:14] LABS: D-DIMER 8.28 mg/L FEU (0.00-0.50)
[2020-08-19 08:28] LABS: ALBUMIN 2.8 g/dL (3.4-5.0); BILIRUBIN,TOTAL 0.5 mg/dL (0.1-1.0); C-REACTIVE PROTEIN QUANT 2.56 mg/dL (0.00-0.30); CREATININE 1.33 mg/dL (0.60-1.30); POTASSIUM 4.1 mmol/L (3.5-5.1); TOTAL PROTEIN, SERUM 6.7 g/dL (6.4-8.2)
[2020-08-19] MEDS: DEXAMETHASONE SOD PHOS 4 MG/ML VIAL IVP SCH (08:46)
[2020-08-19] MEDS: PANTOPRAZOLE SODIUM 40 MG/VIAL IVP SCH ×2 (08:46→20:04)
[2020-08-19] MEDS: BENZONATATE 100 MG CAPSULE PO PRN ×2 (08:47→19:54)
[2020-08-19] MEDS: ATORVASTATIN CALCIUM 20 MG TABLET PO SCH (08:47)
[2020-08-19] MEDS: TAMSULOSIN HCL 0.4 MG CAPSULE PO SCH (08:47)
[2020-08-19] MEDS: CHOLECALCIFEROL (VIT D3) 2,000 UNITS [50 MCG] TABLET PO SCH (08:47)
[2020-08-19] MEDS: MULTIVITAMINS WITH MINERALS, THERAPEUTIC TABLET PO SCH (08:47)
[2020-08-19] MEDS: ASPIRIN 81 MG CHEWABLE TABLET PO SCH (08:47)
[2020-08-19] MEDS: ZINC SULFATE 220 MG CAPSULE PO SCH ×2 (08:47→19:54)
[2020-08-19] MEDS: ASCORBIC ACID 500 MG TABLET PO SCH (08:47)
[2020-08-19] MEDS: GABAPENTIN 300 MG CAPSULE PO SCH ×2 (08:51→19:54)
[2020-08-19] MEDS: FINASTERIDE 5 MG TABLET PO SCH (08:51)
[2020-08-19] MEDS: BENZOCAINE/MENTHOL LOZENGE PO PRN (09:06)
[2020-08-19 10:33] LABS: ERYTHROCYTE SEDIMENTATION RATE 3 MM/HR (0-15)
[2020-08-19 13:04] LABS: GLUCOMETER DEV NAME(LOC) 5S.1; GLUCOSE,POINT OF CARE 292 MG/DL (70-110)
[2020-08-19 13:05] LABS: GLUCOMETER DEV NAME(LOC) 5S.1; GLUCOSE,POINT OF CARE 173 MG/DL (70-110)
[2020-08-19] MEDS: MELATONIN 3 MG TABLET PO PRN (19:54)
[2020-08-20] MEDS: ALBUTEROL SULFATE/IPRATROPIUM 100-20 MCG/SPRAY 4 GM INHALER IH SCH ×2 (00:34→05:50)
[2020-08-20 02:43] LABS: GLUCOMETER DEV NAME(LOC) 5N.3; GLUCOSE,POINT OF CARE 257 MG/DL (70-110)
[2020-08-20 02:43] LABS: GLUCOMETER DEV NAME(LOC) 5N.1B; GLUCOSE,POINT OF CARE 293 MG/DL (70-110)
[2020-08-20 02:43] LABS: GLUCOMETER DEV NAME(LOC) 5N.3; GLUCOSE,POINT OF CARE 193 MG/DL (70-110)
[2020-08-20 02:44] LABS: GLUCOMETER DEV NAME(LOC) 5N.1B; GLUCOSE,POINT OF CARE 370 MG/DL (70-110)
[2020-08-20] MEDS: GuaiFENesin/CODEINE [SUGAR FREE] 200-20MG/10 ML SYRUP UDCUP PO PRN (03:42)
[2020-08-20] MEDS: BENZOCAINE/MENTHOL LOZENGE PO PRN (03:43)
[2020-08-20 04:39] VITALS: BP 108/66
[2020-08-20] MEDS: INSULIN LISPRO 100 UNITS/ML SQ PRN ×4 (05:46→21:41)
[2020-08-20 07:16] LABS: BASOPHILS % (AUTO) 0.1 % (0.0-2.0); EOSINOPHILS % (AUTO) 1.2 % (1.0-6.0); HEMOGLOBIN 12.7 g/dL (13.5-17.5); LYMPHOCYTES # (AUTO) 0.8 K/uL (1.0-4.8); LYMPHOCYTES % (AUTO) 7.1 % (22.0-44.0); MEAN CORPUSCULAR HEMOGLOBIN 25.7 pg (26.0-34.0); MEAN CORPUSCULAR HGB CONC 32.5 G/dL (31.0-37.0); MEAN CORPUSCULAR VOLUME 79 fL (80-100); MONOCYTES # (AUTO) 0.7 K/uL (0.1-1.0); MONOCYTES % (AUTO) 6.1 % (2.0-9.0); NEUTROPHILS # (AUTO) 9.4 K/uL (1.8-7.7); PLATELET COUNT (AUTO) 376 K/uL (150-450); RED BLOOD CELL COUNT(AUTO) 4.92 MIL/uL (4.50-5.90); RED CELL DISTRIBUTION WIDTH 14.7 % (11.5-14.5)
[2020-08-20 07:43] LABS: GLUCOMETER DEV NAME(LOC) 5N.1B; GLUCOSE,POINT OF CARE 227 MG/DL (70-110)
[2020-08-20 07:49] LABS: D-DIMER 6.71 mg/L FEU (0.00-0.50)
[2020-08-20 07:51] LABS: ALBUMIN 2.8 g/dL (3.4-5.0); BILIRUBIN,TOTAL 0.6 mg/dL (0.1-1.0); C-REACTIVE PROTEIN QUANT 2.02 mg/dL (0.00-0.30); CALCIUM, TOTAL 8.5 mg/dL (8.8-10.5); CREATININE 1.3 mg/dL (0.60-1.30); POTASSIUM 4.1 mmol/L (3.5-5.1); TOTAL PROTEIN, SERUM 6.8 g/dL (6.4-8.2)
[2020-08-20 08:02] LABS: NEUTROPHILS % (AUTO) 85.5 % (40.0-70.0)
[2020-08-20] MEDS: ASPIRIN 81 MG CHEWABLE TABLET PO SCH (09:45)
[2020-08-20] MEDS: CHOLECALCIFEROL (VIT D3) 2,000 UNITS [50 MCG] TABLET PO SCH (09:45)
[2020-08-20] MEDS: TAMSULOSIN HCL 0.4 MG CAPSULE PO SCH (09:45)
[2020-08-20] MEDS: ATORVASTATIN CALCIUM 20 MG TABLET PO SCH (09:46)
[2020-08-20] MEDS: MULTIVITAMINS WITH MINERALS, THERAPEUTIC TABLET PO SCH (09:46)
[2020-08-20] MEDS: FINASTERIDE 5 MG TABLET PO SCH (09:46)
[2020-08-20] MEDS: DEXAMETHASONE SOD PHOS 4 MG/ML VIAL IVP SCH (09:46)
[2020-08-20] MEDS: GABAPENTIN 300 MG CAPSULE PO SCH ×2 (09:46→21:45)
[2020-08-20] MEDS: ZINC SULFATE 220 MG CAPSULE PO SCH ×2 (09:46→21:45)
[2020-08-20] MEDS: ASCORBIC ACID 500 MG TABLET PO SCH (09:46)
[2020-08-20] MEDS: PANTOPRAZOLE SODIUM 40 MG/VIAL IVP SCH ×2 (09:47→21:45)
[2020-08-20 11:00] VITALS: BP 121/79
[2020-08-20 13:48] LABS: GLUCOMETER DEV NAME(LOC) 5N.1B; GLUCOSE,POINT OF CARE 331 MG/DL (70-110)
[2020-08-20 16:00] VITALS: BP 132/66
[2020-08-20 20:44] VITALS: BP 150/70
[2020-08-20] MEDS: BENZONATATE 100 MG CAPSULE PO PRN (21:44)
[2020-08-20] MEDS: APIXABAN 5 MG TABLET PO SCH (21:45)
[2020-08-20] MEDS: MELATONIN 3 MG TABLET PO PRN (21:53)
[2020-08-20 23:33] LABS: GLUCOMETER DEV NAME(LOC) 5N.1B; GLUCOSE,POINT OF CARE 335 MG/DL (70-110)
[2020-08-20 23:33] LABS: GLUCOMETER DEV NAME(LOC) 5N.3; GLUCOSE,POINT OF CARE 334 MG/DL (70-110)
[2020-08-21 00:28] VITALS: BP 156/78
[2020-08-21 05:32] VITALS: BP 103/60
[2020-08-21] MEDS: ALBUTEROL SULFATE/IPRATROPIUM 100-20 MCG/SPRAY 4 GM INHALER IH SCH ×4 (06:00→12:00)
[2020-08-21] MEDS: INSULIN LISPRO 100 UNITS/ML SQ PRN ×4 (06:05→20:50)
[2020-08-21] MEDS: BENZONATATE 100 MG CAPSULE PO PRN ×2 (07:02→20:49)
[2020-08-21 07:21] VITALS: BP 115/65
[2020-08-21 07:53] LABS: GLUCOMETER DEV NAME(LOC) 5N.1B; GLUCOSE,POINT OF CARE 195 MG/DL (70-110)
[2020-08-21] MEDS: ZINC SULFATE 220 MG CAPSULE PO SCH ×2 (08:28→20:37)
[2020-08-21] MEDS: PANTOPRAZOLE SODIUM 40 MG/VIAL IVP SCH ×2 (08:28→20:37)
[2020-08-21] MEDS: GABAPENTIN 300 MG CAPSULE PO SCH ×2 (08:28→20:37)
[2020-08-21] MEDS: CHOLECALCIFEROL (VIT D3) 2,000 UNITS [50 MCG] TABLET PO SCH (08:28)
[2020-08-21] MEDS: ASCORBIC ACID 500 MG TABLET PO SCH (08:29)
[2020-08-21] MEDS: APIXABAN 5 MG TABLET PO SCH ×2 (08:29→20:37)
[2020-08-21] MEDS: FINASTERIDE 5 MG TABLET PO SCH (08:29)
[2020-08-21] MEDS: ASPIRIN 81 MG CHEWABLE TABLET PO SCH (08:29)
[2020-08-21] MEDS: TAMSULOSIN HCL 0.4 MG CAPSULE PO SCH (08:30)
[2020-08-21] MEDS: DEXAMETHASONE SOD PHOS 4 MG/ML VIAL IVP SCH (08:30)
[2020-08-21] MEDS: ATORVASTATIN CALCIUM 20 MG TABLET PO SCH (08:30)
[2020-08-21] MEDS: MULTIVITAMINS WITH MINERALS, THERAPEUTIC TABLET PO SCH (08:30)
[2020-08-21 10:51] VITALS: BP 125/69
[2020-08-21 14:28] LABS: GLUCOMETER DEV NAME(LOC) 5N.1B; GLUCOSE,POINT OF CARE 383 MG/DL (70-110)
[2020-08-21 16:02] VITALS: BP 126/70
[2020-08-21 20:49] VITALS: BP 115/73
[2020-08-21] MEDS: MELATONIN 3 MG TABLET PO PRN (21:36)
[2020-08-22 01:04] VITALS: BP 129/76
[2020-08-22 02:00] LABS: GLUCOMETER DEV NAME(LOC) 5N.1B; GLUCOSE,POINT OF CARE 385 MG/DL (70-110)
[2020-08-22 02:00] LABS: GLUCOMETER DEV NAME(LOC) 5N.1B; GLUCOSE,POINT OF CARE 264 MG/DL (70-110)
[2020-08-22] MEDS: BENZONATATE 100 MG CAPSULE PO PRN (03:45)
[2020-08-22 05:10] VITALS: BP 119/71
[2020-08-22] MEDS: INSULIN LISPRO 100 UNITS/ML SQ PRN ×4 (06:06→20:53)
[2020-08-22] MEDS: ALBUTEROL SULFATE/IPRATROPIUM 100-20 MCG/SPRAY 4 GM INHALER IH SCH ×3 (06:07→21:02)
[2020-08-22 07:21] VITALS: BP 114/78
[2020-08-22] MEDS: TAMSULOSIN HCL 0.4 MG CAPSULE PO SCH (08:41)
[2020-08-22] MEDS: ATORVASTATIN CALCIUM 20 MG TABLET PO SCH (08:41)
[2020-08-22] MEDS: PANTOPRAZOLE SODIUM 40 MG/VIAL IVP SCH ×2 (08:41→20:53)
[2020-08-22] MEDS: FINASTERIDE 5 MG TABLET PO SCH (08:41)
[2020-08-22] MEDS: ZINC SULFATE 220 MG CAPSULE PO SCH ×2 (08:41→20:53)
[2020-08-22] MEDS: ASPIRIN 81 MG CHEWABLE TABLET PO SCH (08:41)
[2020-08-22] MEDS: CHOLECALCIFEROL (VIT D3) 2,000 UNITS [50 MCG] TABLET PO SCH (08:41)
[2020-08-22] MEDS: GABAPENTIN 300 MG CAPSULE PO SCH ×2 (08:41→20:53)
[2020-08-22] MEDS: MULTIVITAMINS WITH MINERALS, THERAPEUTIC TABLET PO SCH (08:41)
[2020-08-22] MEDS: APIXABAN 5 MG TABLET PO SCH ×2 (08:41→20:53)
[2020-08-22] MEDS: ASCORBIC ACID 500 MG TABLET PO SCH (08:41)
[2020-08-22] MEDS: DEXAMETHASONE SOD PHOS 4 MG/ML VIAL IVP SCH (08:42)
[2020-08-22 09:01] LABS: GLUCOMETER DEV NAME(LOC) 5N.1B; GLUCOSE,POINT OF CARE 199 MG/DL (70-110)
[2020-08-22 12:03] VITALS: BP 120/75
[2020-08-22 15:25] VITALS: BP 130/74
[2020-08-22 17:40] LABS: GLUCOMETER DEV NAME(LOC) 5N.1B; GLUCOSE,POINT OF CARE 361 MG/DL (70-110)
[2020-08-22 20:30] VITALS: BP 131/77
[2020-08-23 00:28] VITALS: BP 118/74
[2020-08-23] MEDS: ALBUTEROL SULFATE/IPRATROPIUM 100-20 MCG/SPRAY 4 GM INHALER IH SCH ×3 (00:55→11:31)
[2020-08-23 05:53] VITALS: BP 126/75
[2020-08-23] MEDS: INSULIN LISPRO 100 UNITS/ML SQ PRN ×2 (06:04→11:30)
[2020-08-23 07:41] LABS: ANION GAP 7 mmol/L (8-16); C-REACTIVE PROTEIN QUANT 0.36 mg/dL (0.00-0.30); CALCIUM, TOTAL 8.8 mg/dL (8.8-10.5); CARBON DIOXIDE 28 mmol/L (22-29); CHLORIDE 100 mmol/L (98-107); CREATININE 1.17 mg/dL (0.60-1.30); GLOMERULAR FILTR. RATE CALC > 60 mL/min (>60); GLUCOSE,RANDOM 193 mg/dL (70-110); POTASSIUM 4.2 mmol/L (3.5-5.1); SODIUM SERUM 135 mmol/L (136-145); UREA NITROGEN, BLOOD 27 mg/dL (7-18)
[2020-08-23 08:13] LABS: GLUCOMETER DEV NAME(LOC) 5N.1B; GLUCOSE,POINT OF CARE 327 MG/DL (70-110)
[2020-08-23 08:13] LABS: GLUCOMETER DEV NAME(LOC) 5N.1B; GLUCOSE,POINT OF CARE 228 MG/DL (70-110)
[2020-08-23 08:19] VITALS: BP 118/74
[2020-08-23] MEDS: DEXAMETHASONE SOD PHOS 4 MG/ML VIAL IVP SCH (08:25)
[2020-08-23] MEDS: GABAPENTIN 300 MG CAPSULE PO SCH (08:26)
[2020-08-23] MEDS: FINASTERIDE 5 MG TABLET PO SCH (08:26)
[2020-08-23] MEDS: PANTOPRAZOLE SODIUM 40 MG/VIAL IVP SCH (08:26)
[2020-08-23] MEDS: ASCORBIC ACID 500 MG TABLET PO SCH (08:26)
[2020-08-23] MEDS: ZINC SULFATE 220 MG CAPSULE PO SCH (08:26)
[2020-08-23] MEDS: APIXABAN 5 MG TABLET PO SCH (08:26)
[2020-08-23] MEDS: ASPIRIN 81 MG CHEWABLE TABLET PO SCH (08:26)
[2020-08-23] MEDS: CHOLECALCIFEROL (VIT D3) 2,000 UNITS [50 MCG] TABLET PO SCH (08:27)
[2020-08-23] MEDS: ATORVASTATIN CALCIUM 20 MG TABLET PO SCH (08:27)
[2020-08-23] MEDS: TAMSULOSIN HCL 0.4 MG CAPSULE PO SCH (08:27)
[2020-08-23] MEDS: MULTIVITAMINS WITH MINERALS, THERAPEUTIC TABLET PO SCH (08:27)
[2020-08-23 11:14] VITALS: BP 120/74
[2020-08-23] MEDS ORDERED: ZINC220C14 PO (11:43)
[2020-08-23] MEDS ORDERED: DEXA6TAB7 PO (11:43)
[2020-08-23] MEDS ORDERED: APIX5TAB PO (11:43)
[2020-08-23 12:12] LABS: GLUCOMETER DEV NAME(LOC) 5N.1B; GLUCOSE,POINT OF CARE 315 MG/DL (70-110)
[2020-08-23 16:16] VITALS: BP 138/73
[2020-08-23 23:22] LABS: GLUCOMETER DEV NAME(LOC) 5N.3; GLUCOSE,POINT OF CARE 350 MG/DL (70-110)
[2020-08-27] MEDS ORDERED: APIXABAN 5 MG TABLET PO SCH (21:00)
== END 2020-08-23 16:30 | disposition home or self-care (01) | DRG 720 ==
LOC: EMS 13:17 → 5N 16:30
PROVIDERS: ADMIT Internal Medicine; ATTEND Internal Medicine
PROC: XW033E5 Introduction of Remdesivir Anti-infective into Peripheral Vein, Percutaneous Approach, New Technology Group 5 (ICD-10-PCS; principal; 2020-08-15)
PROC: 3E0234Z Introduction of Serum, Toxoid and Vaccine into Muscle, Percutaneous Approach (ICD-10-PCS; 2020-08-15)
PROC: XW13325 Transfusion of Convalescent Plasma (Nonautologous) into Peripheral Vein, Percutaneous Approach, New Technology Group 5 (ICD-10-PCS; 2020-08-19)
DX: A41.89 Other specified sepsis (principal); U07.1 COVID-19; J12.82 Pneumonia due to coronavirus disease 2019; I21.4 Non-ST elevation (NSTEMI) myocardial infarction; J96.01 Acute respiratory failure with hypoxia; I11.9 Hypertensive heart disease without heart failure; N40.0 Benign prostatic hyperplasia without lower urinary tract symptoms; J45.909 Unspecified asthma, uncomplicated; E78.00 Pure hypercholesterolemia, unspecified; E11.65 Type 2 diabetes mellitus with hyperglycemia; D72.810 Lymphocytopenia; D68.59 Other primary thrombophilia; I26.99 Other pulmonary embolism without acute cor pulmonale; I82.409 Acute embolism and thrombosis of unspecified deep veins of unspecified lower extremity; N17.0 Acute kidney failure with tubular necrosis; R65.20 Severe sepsis without septic shock; Z79.82 Long term (current) use of aspirin; Z79.84 Long term (current) use of oral hypoglycemic drugs; Z79.899 Other long term (current) drug therapy; Z23 Encounter for immunization
CPT/HCPCS: 36600; 78580; 82271; 82570; 82728; 82805; 83036; 83605; 83615; 83735; 84100; 84145; 84300; 84439; 84443; 84540; 85014; 85018; 85379; 85384; 85651; 86140; 86900; 86901; 86927; 87040; 87426; 87804; 93005; 93306; 93970; 99291; A9540; A9575; C9113; J0456; J0696; J1100; J1644; J3490; J7030; J7040; J7050; J7060; 36415-L1; 36415-TC; 71045-TC; 80061-TC; U0003